=== PATIENT | female | born 1985 | race Caucasian/White ===

== ENCOUNTER 2018-09-04 15:23 | Emergency (ER) | payer OTHER ==
[2018-09-04 15:40] VITALS: BMI 29.2
[2018-09-04] MEDS ORDERED: diazePAM 2 MG TABLET PO ONE (16:39)
[2018-09-04] MEDS ORDERED: diazePAM 2 MG TABLET ONE (16:43)
[2018-09-04 18:00] VITALS: BP 116/80; PULSE 100; TEMP 98.5
--- NOTE | 2018-09-04 18:06 | PDOC ---
History of Present Illness - General Chief Complaint: Pain Stated Complaint: "LOCKED JAW"-JAW PAIN Time Seen by Provider: 09/04/18 16:14 History Source: Patient Exam Limitations: No Limitations Past History - Travel Traveled outside of the country in the last 30 days: No Close contact w/someone who was outside of country & ill: No - Past Medical History Allergies/Adverse Reactions: Allergies Allergy/AdvReac Type Severity Reaction Status Date / Time No Known Allergies Allergy Verified 09/04/18 15:35 Home Medications: Ambulatory Orders Benztropine Mesylate 09/04/18 Fluoxetine HCl [Prozac] 20 mg PO DAILY 09/04/18 Quetiapine Fumarate [Seroquel] 300 mg PO HS 09/04/18 COPD: No Psychiatric Problems: Yes (DEPRESSION) - Suicide/Smoking/Psychosocial Hx Smoking History: Never smoked Hx Alcohol Use: No Drug/Substance Use Hx: No Substance Use Type: None Review of Systems - Review of Systems Able to Perform ROS?: Yes Comments:: 09/04/18 17:46 CONSTITUTIONAL: Absent: fever, chills, diaphoresis, generalized weakness, malaise, loss of appetite HEENT: Absent: rhinorrhea, nasal congestion, throat pain, throat swelling, difficulty swallowing, mouth swelling, ear pain, eye pain, visual Changes CARDIOVASCULAR: Absent: chest pain, loss of consciousness, palpitations, irregular heart rate, peripheral edema RESPIRATORY: Absent: cough, shortness of breath, dyspnea with exertion, orthopnea, wheezing, stridor, hemoptysis GASTROINTESTINAL: Absent: abdominal pain, abdominal distension, nausea, vomiting, diarrhea, constipation, melena, hematochezia GENITOURINARY: Absent: dysuria, frequency, urgency, hesitancy, hematuria, flank pain, genital pain MUSCULOSKELETAL: Absent: myalgia, arthralgia, joint swelling SKIN: Absent: rash, itching, pallor HEMATOLOGIC/IMMUNOLOGIC: Absent: easy bleeding, easy bruising, lymphadenopathy, frequent infections ENDOCRINE: Absent: unexplained weight gain, unexplained weight loss, heat intolerance, cold intolerance NEUROLOGIC: Absent: headache, focal weakness or paresthesias, dizziness, unsteady gait, seizure, mental status changes, bladder or bowel incontinence PSYCHIATRIC: Absent: anxiety, depression, suicidal or homicidal ideation, hallucinations. Is the patient limited Frisian proficient: No *Physical Exam - Vital Signs Last Vital Signs Temp Pulse Resp BP Pulse Ox 97.7 F 118 H 17 133/95 100 09/04/18 15:36 09/04/18 15:36 09/04/18 15:36 09/04/18 15:36 09/04/18 15:36 - Physical Exam Comments: 09/04/18 17:46 physical exam Moderate Sedation - Procedure Monitoring Vital Signs: Procedure Monitoring Vital Signs Temperature 97.7 F 09/04/18 15:36 Pulse Rate 118 H 09/04/18 15:36 Respiratory Rate 17 09/04/18 15:36 Blood Pressure 133/95 09/04/18 15:36 O2 Sat by Pulse Oximetry (%) 100 09/04/18 15:36 ED Treatment Course - RADIOLOGY Radiology Studies Ordered: Category Date Time Status MANDIBLE COMPLETE [RAD] Stat Radiology 09/04/18 16:39 Taken - Medications Given in the ED: ED Medications Discontinued Medications Generic Name Dose Route Start Last Admin Trade Name Phongq PRN Reason Stop Dose Admin Diazepam 2 mg 09/04/18 16:39 09/04/18 16:46 Valium - PO 09/04/18 16:40 2 mg ONCE ONE Administration *DC/Admit/Observation/Transfer Diagnosis at time of Disposition: TMJ (sprain of temporomandibular joint) Qualifiers: Encounter type: initial encounter Qualified Code(s): S03.40XA - Sprain of jaw, unspecified side, initial encounter - Discharge Dispostion Disposition: HOME Condition at time of disposition: Stable Decision to Admit order: No - Referrals - Patient Instructions Printed Discharge Instructions: DI for Temporomandibular Disorder Additional Instructions: You were evaluated for your stiff jaw today. Please take your medications as prescribed. Make sure you take the haloperidol with the cogentin Eat soft foods to avoid opening your mouth too wide Follow up with dentistry to have a bite block made Return to the ED for any new or worsening symptoms [facility] Address: [address] [place] [id number] Hours: Open ? Closes 9PM - Post Discharge Activity Forms/Work/School Notes: Back to Work
== END 2018-09-04 18:26 | disposition home or self-care (01) ==
LOC: JER 15:23
DX: S03.40XA Sprain of jaw, unspecified side, initial encounter (principal); X58.XXXA Exposure to other specified factors, initial encounter; Y93.89 Activity, other specified; Y92.9 Unspecified place or not applicable; F32.9 Major depressive disorder, single episode, unspecified
CPT/HCPCS: 70110-TC-FY; 99281-25

== ENCOUNTER 2018-09-23 10:12 | Emergency (ER) | payer OTHER ==
[2018-09-23 10:20] VITALS: TEMP 98.1; BMI 29.2
--- NOTE | 2018-09-23 10:39 | PDOC ---
History of Present Illness - General Chief Complaint: Psychiatric Stated Complaint: ALLERGIC REACTION Time Seen by Provider: 09/23/18 10:21 History Source: Patient Exam Limitations: No Limitations - History of Present Illness Initial Comments: 09/23/18 13:05 Pt is a 32 y/o F with PMH of depression who presents to the ED with anxiety today. Pt states that her psychiatrist wanted her to trial taking the Haldol again. Pt lindaifly stopped the medication after her last ED visit. Pt states that since taking the medication she has felt on edge and cannot stop pacing. Denies SI, HI, A/V hallucinations, fever, chills, n/v/d. Past History - Travel Traveled outside of the country in the last 30 days: No Close contact w/someone who was outside of country & ill: No - Past Medical History Allergies/Adverse Reactions: Allergies Allergy/AdvReac Type Severity Reaction Status Date / Time No Known Allergies Allergy Verified 09/04/18 15:35 Home Medications: Ambulatory Orders Diazepam [Valium] 2 mg PO TID #7 tablet MDD 3 09/23/18 NK [No Known Home Medication] 09/23/18 COPD: No Psychiatric Problems: Yes (DEPRESSION) - Surgical History Cardiac Surgery: No GI Surgery: No - Suicide/Smoking/Psychosocial Hx Smoking History: Never smoked Have you smoked in the past 12 months: No Information on smoking cessation initiated: No Hx Alcohol Use: No Drug/Substance Use Hx: No Substance Use Type: None Review of Systems - Review of Systems Able to Perform ROS?: Yes Comments:: 09/23/18 10:39 CONSTITUTIONAL: Absent: fever, chills, diaphoresis, generalized weakness, malaise, loss of appetite HEENT: Absent: rhinorrhea, nasal congestion, throat pain, throat swelling, difficulty swallowing, mouth swelling, ear pain, eye pain, visual Changes CARDIOVASCULAR: Absent: chest pain, loss of consciousness, palpitations, irregular heart rate, peripheral edema RESPIRATORY: Absent: cough, shortness of breath, dyspnea with exertion, orthopnea, wheezing, stridor, hemoptysis GASTROINTESTINAL: Absent: abdominal pain, abdominal distension, nausea, vomiting, diarrhea, constipation, melena, hematochezia GENITOURINARY: Absent: dysuria, frequency, urgency, hesitancy, hematuria, flank pain, genital pain MUSCULOSKELETAL: Absent: myalgia, arthralgia, joint swelling SKIN: Absent: rash, itching, pallor HEMATOLOGIC/IMMUNOLOGIC: Absent: easy bleeding, easy bruising, lymphadenopathy, frequent infections ENDOCRINE: Absent: unexplained weight gain, unexplained weight loss, heat intolerance, cold intolerance NEUROLOGIC: Absent: headache, focal weakness or paresthesias, dizziness, unsteady gait, seizure, mental status changes, bladder or bowel incontinence PSYCHIATRIC: Present: anxiety Absent: depression, suicidal or homicidal ideation, hallucinations. Is the patient limited Barbadian proficient: No *Physical Exam - Vital Signs Last Vital Signs Temp Pulse Resp BP Pulse Ox 98.1 F 116 H 18 124/92 98 09/23/18 10:16 09/23/18 10:16 09/23/18 10:16 09/23/18 10:16 09/23/18 10:16 - Physical Exam Comments: 09/23/18 10:39 GENERAL: Well developed, well nourished. Awake and alert. No acute distress. NECK: Supple. Full ROM. No JVD. Carotid pulses 2+ and symmetric, without bruits. No thyromegaly. No lymphadenopathy. ABDOMINAL: Soft. Non-tender. Non-distended. No rebound or guarding. No organomegaly. Normoactive bowel sounds. MUSCULOSKELETAL Normal range of motion at all joints. No bony deformities or tenderness. No CVA tenderness. EXTREMITIES: No cyanosis. No clubbing. No edema. No calf tenderness. SKIN: Warm and dry. Normal capillary refill. No rashes. No jaundice. NEUROLOGICAL: Alert, awake, appropriate. Cranial nerves 2-12 intact. No deficits to light touch and temperature in face, upper extremities and lower extremities. No motor deficits in the in face, upper extremities and lower extremities. Normoreflexic in the upper and lower extremities. Normal speech. Toes are down- going bilaterally. Gait is normal without ataxia. PSYCHIATRIC: Pressured speech, fair eye contact. Pt seems anxious, pacing in the exam room. Cooperative. Moderate Sedation - Procedure Monitoring Vital Signs: Procedure Monitoring Vital Signs Temperature 98.1 F 09/23/18 10:16 Pulse Rate 116 H 09/23/18 10:16 Respiratory Rate 18 09/23/18 10:16 Blood Pressure 124/92 09/23/18 10:16 O2 Sat by Pulse Oximetry (%) 98 09/23/18 10:16 Medical Decision Making - Medical Decision Making 09/23/18 11:58 Pt received 4mg of valium and feels better; that her anxiety has decreased. Would like to be discharged at this time. Pt denies SI/HI/AVH. Pt feels safe to go home Has psych follow up on Sunday with her psychiatrist Advised to stop taking the haldol as it is increasing her anxiety Pt requesting having her urine checked for UTI. Will run the test and call with results as pt does not want to stay at this time to wait. DC home I discussed the physical exam findings, ancillary test results and final diagnoses with the patient. I answered all of the patient's questions. The patient was satisfied with the care received and felt comfortable with the discharge plan and treatment plan. The Patient agrees to follow up with the primary care physician/specialist within 24-72 hours. Return precautions were given. *DC/Admit/Observation/Transfer Diagnosis at time of Disposition: Anxiety - Discharge Dispostion Disposition: HOME Condition at time of disposition: Stable Decision to Admit order: No - Prescriptions Prescriptions: Diazepam [Valium] 2 mg PO TID #7 tablet MDD 3 - Referrals Referrals: Arpan Castañeda MD [Staff Physician] - - Patient Instructions Printed Discharge Instructions: DI for Anxiety -- Adult Additional Instructions: You were evaluated for your anxiety Please stop taking the haldol You may take Valium as needed every 8 hours for anxiety. Do not drink or drive after taking the medication as it can make you sleepy Follow up with your psychiatrist as planned Return to the ED for worsening anxiety or if you have any changes in your symptoms - Post Discharge Activity
[2018-09-23] MEDS ORDERED: diazePAM 2 MG TABLET PO ONE ×2 (11:09→11:54)
[2018-09-23] MEDS ORDERED: diazePAM 2 MG TABLET ONE ×2 (11:18→11:55)
[2018-09-23 12:42] VITALS: BP 122/75; PULSE 81
[2018-09-23 13:19] LABS: URINE APPEARANCE CLEAR; URINE BILIRUBIN NEGATIVE (<2.0 mg/dL); URINE COLOR LTYELLOW; URINE GLUCOSE (UA) NEGATIVE (NEGATIVE); URINE KETONE NEGATIVE (NEGATIVE); URINE LEUK ESTERASE 2+ (NEGATIVE); URINE NITRITE NEGATIVE (NEGATIVE); URINE PROTEIN NEGATIVE (NEGATIVE); URINE UROBILINOGEN NEGATIVE mg/dL (0.2-1.0)
[2018-09-23 13:49] LABS: EPI CELLS RARE /HPF (FEW)
== END 2018-09-23 12:42 | disposition home or self-care (01) ==
LOC: JER 10:12
DX: F41.8 Other specified anxiety disorders (principal); F32.9 Major depressive disorder, single episode, unspecified; N39.0 Urinary tract infection, site not specified
CPT/HCPCS: 81003; 81015; 87086; 87186; 99283-25

== ENCOUNTER 2018-12-27 22:00 | Inpatient (IN) | payer OTHER ==
[2018-12-27] MEDS ORDERED: SODIUM CHLORIDE 1,000 ML IV STA (22:04)
--- NOTE | 2018-12-27 22:05 | PDOC ---
History of Present Illness - General Stated Complaint: OVERDOSE Time Seen by Provider: 12/27/18 22:02 - History of Present Illness Initial Comments: 12/27/18 22:08 33f with pmh of depression and anxiety brought by mother in her care after she was found unconscious next to two empty bottles of Quetiapine 200mg and Fluoxetine 20mg prescribed by her Psychiatrist Dr. Darrian Zarate. Unknown time of ingestion but she told her brother's partner to "say goodbye to the kids because" she "couldn't do this no more" around 7:30pm Mother drove to the ambulance bay Mother's phone number: [phone] Past History - Past Medical History Allergies/Adverse Reactions: Allergies Allergy/AdvReac Type Severity Reaction Status Date / Time No Known Allergies Allergy Verified 12/27/18 22:11 Home Medications: Ambulatory Orders Diazepam [Valium] 2 mg PO TID #7 tablet MDD 3 09/23/18 NK [No Known Home Medication] 09/23/18 COPD: No Psychiatric Problems: Yes (DEPRESSION) - Surgical History Cardiac Surgery: No GI Surgery: No - Suicide/Smoking/Psychosocial Hx Smoking History: Never smoked Have you smoked in the past 12 months: No Hx Alcohol Use: No Drug/Substance Use Hx: No Substance Use Type: None Review of Systems - Review of Systems Able to Perform ROS?: No (unconscious) *Physical Exam - Physical Exam General Appearance: Yes: Nourished, Appropriately Dressed, Intoxicated HEENT: positive: Other (pinpoint pupils, white, dry saliva) Respiratory/Chest: positive: Lungs Clear, Normal Breath Sounds. negative: Chest Tender, Respiratory Distress Cardiovascular: positive: Regular Rhythm, Regular Rate, S1, S2 Gastrointestinal/Abdominal: positive: Normal Bowel Sounds, Flat, Soft. negative : Tender Musculoskeletal: positive: Normal Inspection, CVA Tenderness Extremity: positive: Normal Capillary Refill, Normal Inspection, Normal Range of Motion Neurologic: positive: Other (obtunded patient, responds to pain. ) ED Treatment Course - LABORATORY CBC & Chemistry Diagram: 12/27/18 22:10 12/27/18 22:10 Medical Decision Making - Medical Decision Making 12/27/18 22:53 EKG: Sinus tachycardia. no wide complex or prolongued QT Full tox workup., cxr,. Preg negative. Will call POison control pending labs. Hypokalemia, gave her rider bag of potassium 10meQ 12/27/18 23:17 Spoke to Poison controlwho recommended observation for 12h, ekg q6 and supplental potassium. 1:1 observation upon waking up. 12/27/18 23:43 Patient signed out to Dr. Ardon *DC/Admit/Observation/Transfer Diagnosis at time of Disposition: Intentional SSRI (selective serotonin reuptake inhibitor) overdose, Overdose of antipsychotic - Referrals - Patient Instructions - Post Discharge Activity
[2018-12-27 22:19] LABS: BASO % 0.3 % (0-2.0); EOS % 0.4 % (0-4.5); HEMATOCRIT 34.4 % (32.4-45.2); HEMOGLOBIN 11.5 GM/dL (10.7-15.3); LYMPH % 19.7 % (8-40); MCH 28.6 pg (25.7-33.7); MCHC 33.5 g/dl (32.0-36.0); MEAN CELL VOLUME 85.4 fl (80-96); MEAN PLT VOLUME 8.3 fl (7.5-11.1); MONO % 5.7 % (3.8-10.2); NEUT % 73.9 % (42.8-82.8); PLATELET COUNT 302 K/MM3 (134-434); RBC 4.03 M/mm3 (3.60-5.2); RDW 13.5 % (11.6-15.6); WHITE BLOOD COUNT 10.6 K/mm3 (4.0-10.0)
[2018-12-27 22:41] LABS: URINE APPEARANCE CLEAR; URINE BILIRUBIN NEGATIVE (NEGATIVE); URINE COLOR YELLOW; URINE GLUCOSE (UA) NEGATIVE (NEGATIVE); URINE KETONE 1+ (NEGATIVE); URINE LEUK ESTERASE NEGATIVE (NEGATIVE); URINE NITRITE NEGATIVE (NEGATIVE); URINE PROTEIN NEGATIVE (NEGATIVE); URINE UROBILINOGEN 0.2 mg/dL (0.2-1.0)
[2018-12-27 22:46] LABS: ALBUMIN 3.8 g/dl (3.4-5.0); ALK PHOS 56 U/L (45-117); ANION GAP 13 MMOL/L (8-16); BILIRUBIN,TOTAL 0.3 mg/dL (0.2-1); BLOOD UREA NITROGEN 13 mg/dL (7-18); CALCIUM 8.9 mg/dL (8.5-10.1); CHLORIDE 104 mmol/L (98-107); CO2 20 mmol/L (21-32); CREATININE 0.9 mg/dL (0.55-1.3); GLUCOSE,RANDOM 169 mg/dL (74-106); POTASSIUM 3.1 mmol/L (3.5-5.1); SGOT/AST 30 U/L (15-37); SGPT/ALT 25 U/L (13-61); SODIUM 136 mmol/L (136-145); TOT PROT 7.1 g/dl (6.4-8.2)
[2018-12-27 22:59] LABS: COCAINE, UR NEGATIVE ng/ml (CUTOFF=300); METHADONE, UR NEGATIVE ng/ml (CUTOFF=300); OPIATES, URI NEGATIVE ng/ml (CUTOFF=300); PHENCYCLIDINE,URINE NEGATIVE ng/ml (CUTOFF=25); URINE AMPHETAMINES NEGATIVE ng/ml (CUTOFF=500); URINE BARBITURATES NEGATIVE ng/ml (CUTOFF=200); URINE BENZODIAZEPINES NEGATIVE ng/ml (CUTOFF=200)
[2018-12-27] MEDS ORDERED: KCL 10 MEQ IVPB 10 MEQ/100 ML INFUS.BAG IVPB SCH (23:15)
[2018-12-27] MEDS ORDERED: KCL 10 MEQ IVPB 10 MEQ/100 ML INFUS.BAG IVPB ONE (23:25)
--- NOTE | 2018-12-28 00:12 | PDOC ---
*Physical Exam - Vital Signs Last Vital Signs Temp Pulse Resp BP Pulse Ox 98.6 F 155 H 16 139/71 99 12/27/18 22:09 12/27/18 22:09 12/27/18 22:09 12/27/18 22:09 12/27/18 22:09 ED Treatment Course - LABORATORY CBC & Chemistry Diagram: 12/27/18 22:10 12/27/18 22:10 - ADDITIONAL ORDERS Additional order review: Laboratory Results 12/27/18 12/27/18 12/27/18 22:20 22:20 22:10 Sodium 136 Potassium 3.1 L Chloride 104 Carbon Dioxide 20 L Anion Gap 13 BUN 13 Creatinine 0.9 Creat Clearance w eGFR 72.56 Random Glucose 169 H Calcium 8.9 Total Bilirubin 0.3 AST 30 ALT 25 Alkaline Phosphatase 56 Total Protein 7.1 Albumin 3.8 Serum , Qual Urine Color Yellow Urine Appearance Clear Urine pH 6.0 Ur Specific [place] 1.024 Urine Protein Negative Urine Glucose (UA) Negative Urine Ketones 1+ H Urine Blood Negative Urine Nitrite Negative Urine Bilirubin Negative Urine Urobilinogen 0.2 Ur Leukocyte Esterase Negative Salicylates 4.1 Opiates Screen Negative Methadone Screen Negative Acetaminophen 6.6 L Barbiturate Screen Negative Phencyclidine Screen Negative Ur Amphetamines Screen Negative MDMA (Ecstasy) Screen Negative Benzodiazepines Screen Negative Cocaine Screen Negative U Marijuana (THC) Screen Negative Alcohol, Quantitative < 3.0 12/27/18 22:10 Sodium Potassium Chloride Carbon Dioxide Anion Gap BUN Creatinine Creat Clearance w eGFR Random Glucose Calcium Total Bilirubin AST ALT Alkaline Phosphatase Total Protein Albumin Serum , Qual Negative Urine Color Urine Appearance Urine pH Ur Specific [place] Urine Protein Urine Glucose (UA) Urine Ketones Urine Blood Urine Nitrite Urine Bilirubin Urine Urobilinogen Ur Leukocyte Esterase Salicylates Opiates Screen Methadone Screen Acetaminophen Barbiturate Screen Phencyclidine Screen Ur Amphetamines Screen MDMA (Ecstasy) Screen Benzodiazepines Screen Cocaine Screen U Marijuana (THC) Screen Alcohol, Quantitative 12/27/18 22:10 RBC 4.03 MCV 85.4 MCHC 33.5 RDW 13.5 MPV 8.3 Neutrophils % 73.9 Lymphocytes % 19.7 Monocytes % 5.7 Eosinophils % 0.4 Basophils % 0.3 - RADIOLOGY Radiology Studies Ordered: Category Date Time Status CXRPORT [CHEST X-RAY PORTABLE*] [RAD] Stat Radiology 12/27/18 23:09 Taken - Medications Given in the ED: ED Medications Discontinued Medications Generic Name Dose Route Start Last Admin Trade Name Freq PRN Reason Stop Dose Admin Sodium Chloride 1,000 mls @ 1,000 mls/hr 12/27/18 22:04 12/27/18 22:11 Normal Saline - IV 12/27/18 23:03 1,000 mls/hr ASDIR STA Administration *DC/Admit/Observation/Transfer Diagnosis at time of Disposition: Intentional SSRI (selective serotonin reuptake inhibitor) overdose, Overdose of antipsychotic - Discharge Dispostion Decision to Admit order: Yes - Referrals - Patient Instructions - Post Discharge Activity
--- NOTE | 2018-12-28 00:14 | PDOC ---
Attending Attestation - HPI HPI: 12/28/18 00:47 The patient is a 33 year old female with a significant past medical history of depression and anxiety, brought by mother for evaluation after finding the patient unconscious next to two empty bottles of Quetiapine 200mg and Fluoxetine 20mg prescribed by her Psychiatrist Dr. Darrian Zarate. The patient reportedly told her brother's partner to "say goodbye to the kids because" she "couldn't do this no more" around 7:30pm Allergies: NKDA - Physicial Exam PE: 12/28/18 01:19 Physical Exam: Vitals: Triage vital signs reviewed General Appearance: In mild distress Head: Atraumatic Eyes: (+) pupils small but reactive Neck: Supple; No nuchal rigidity Chest Wall: Nontender Cardiac: (+) tachycardic rate, regular rhythm, no murmurs, no rubs, no gallops Lungs: Clear to auscultation bilateral, good air movement bilaterally Abdomen: Soft, nondistended, normal bowel sounds, nontender to palpation Extremities: Full range of motion to all extremities, no cyanosis, clubbing, or edema Skin: Warm and dry, no rashes or lesions, no rash, no petechiae Neuro: Strength intact to all extremities, Sensation intact to all extremities, <Layla Paiz - Last Filed: 12/28/18 01:19> - Resident Resident Name: Tien Bowie - ED Attending Attestation I have performed the following: I have examined & evaluated the patient, The case was reviewed & discussed with the resident, I agree w/resident's findings & plan, Exceptions are as noted - Medical Decision Making 12/28/18 01:56 Quetipine and Fluoxetine overdose. EKG demonstrates sinus tachycardia narrow complex QRS As discussed with tox center recommend 12 hour every 6 hours EKG monitoring correction of potassium We will admit to medicine for telemetry monitoring and further correction of what joint abnormalities when clinically sober patient will require psychiatric evaluation for overdose and possible suicide attempt <Nader Fall - Last Filed: 12/28/18 01:59> Heart Score/ECG Review - ECG Impressions Comment:: 12/28/18 01:[address] elevations or T-wave inversions. Now, looks QRS. <Nader Fall - Last Filed: 12/28/18 01:59> Attestations - Attestations 12/28/18 00:49 Documentation prepared by Layla Paiz, acting as medical supply technician for Nader Fall MD <Layla Paiz - Last Filed: 12/28/18 01:19>
[2018-12-28] MEDS ORDERED: SODIUM CHLORIDE 1,000 ML IV SCH (00:45)
--- NOTE | 2018-12-28 00:48 | HP ---
CHIEF COMPLAINT: Unresponsiveness PCP: None HISTORY OF PRESENT ILLNESS: 33 yo F w/ h/o depression and anxiety who presents with unresponsiveness after potential suicide attempt. Pt is currently obtunded and history obtained through EMR/ED staff and mother. Around 7:30pm pt was found on the ground at home by her mother surrounded by 2 empty pill bottles (Quetiapine 200mg and Fluoxetine 20mg). Pt's mother reports the pill bottles were around 1/4 to 1/2 full a few days ago, however she is uncertain on any specific pill counts. Pt's mother did not notice any tonic-clonic movements, no urinary incontinence, no excessive diaphoresis, and the pt's mother noted she was still breathing. Her exact time of ingestion is unknown and it was noted earlier that the pt told her brother's significant other to "say goodbye to the kids" and "she could not do this anymore." Pt has been seen by Dr. Darrian Zarate for her depression and has had multiple changes in her depression/anxiety medications for poor control. Pt prior ED visits here were possible reaction to Haldol as well. Pt has not been in psychiatric hospital before. In ED poison control was notified who recommended EKG q6h and at least 12 hours of observation with cardiac monitoring with supportive care as needed. PAST MEDICAL HISTORY: Anxiety Depression PAST SURGICAL HISTORY: Unable to obtain Social History: Unable to obtain Family History: Unable to obtain Allergies No Known Allergies Allergy (Verified 12/27/18 22:11) HOME MEDICATIONS: Home Medications Medication Instructions Recorded Diazepam [Valium] 2 mg PO TID #7 tablet MDD 3 09/23/18 NK [No Known Home Medication] 09/23/18 REVIEW OF SYSTEMS Unable to obtain PHYSICAL EXAMINATION Vital Signs - 24 hr 12/27/18 22:09 Temperature 98.6 F Pulse Rate 155 H Respiratory 16 Rate Blood Pressure 139/71 O2 Sat by Pulse 99 Oximetry (%) GENERAL: NAD, unresponsive even to painful stimuli, warm, nondiaphoretic HEENT: NC/AT, 4mm pupils with narvaez reactivity, no sclera icterus or injections , MMM. NECK: No JVD, trachea midline LUNGS: CTA bilaterally with equal chest rise and fall. No wheezes, and no crackles. No accessory muscle use. HEART: Tachycardic (115bpm) with regular rhythm, normal S1 and S2 without murmur ABDOMEN: Soft, nontender, not distended, normoactive bowel sounds, no guarding MUSCULOSKELETAL: No bony deformities or tenderness. EXTREMITIES: 2+ bounding pulses, very warm, well-perfused. No peripheral edema. NEUROLOGICAL: limited. Babinski downgoing. Patellar reflexes 2/4. No clonus could be elicited. Muscle tone flaccid without any rigidity PSYCHIATRIC: Cooperative. Good eye contact. Appropriate mood and affect. SKIN: Warm, dry, no rashes or lesions noted, normal capillary refill. Laboratory Results 12/27/18 12/27/18 12/27/18 22:10 22:10 22:10 WBC 10.6 H RBC 4.03 Hgb 11.5 Hct 34.4 MCV 85.4 MCH 28.6 MCHC 33.5 RDW 13.5 Plt Count 302 MPV 8.3 Absolute Neuts (auto) 7.8 Neutrophils % 73.9 Lymphocytes % 19.7 Monocytes % 5.7 Eosinophils % 0.4 Basophils % 0.3 Nucleated RBC % 0 Sodium 136 Potassium 3.1 L Chloride 104 Carbon Dioxide 20 L Anion Gap 13 BUN 13 Creatinine 0.9 Creat Clearance w eGFR 72.56 Random Glucose 169 H Calcium 8.9 Total Bilirubin 0.3 AST 30 ALT 25 Alkaline Phosphatase 56 Total Protein 7.1 Albumin 3.8 Serum , Qual Negative Urine Color Urine Appearance Urine pH Ur Specific [place] Urine Protein Urine Glucose (UA) Urine Ketones Urine Blood Urine Nitrite Urine Bilirubin Urine Urobilinogen Ur Leukocyte Esterase Salicylates 4.1 Opiates Screen Methadone Screen Acetaminophen 6.6 L Barbiturate Screen Phencyclidine Screen Ur Amphetamines Screen MDMA (Ecstasy) Screen Benzodiazepines Screen Cocaine Screen U Marijuana (THC) Screen Alcohol, Quantitative < 3.0 12/27/18 12/27/18 22:20 22:20 WBC RBC Hgb Hct MCV MCH MCHC RDW Plt Count MPV Absolute Neuts (auto) Neutrophils % Lymphocytes % Monocytes % Eosinophils % Basophils % Nucleated RBC % Sodium Potassium Chloride Carbon Dioxide Anion Gap BUN Creatinine Creat Clearance w eGFR Random Glucose Calcium Total Bilirubin AST ALT Alkaline Phosphatase Total Protein Albumin Serum , Qual Urine Color Yellow Urine Appearance Clear Urine pH 6.0 Ur Specific [place] 1.024 Urine Protein Negative Urine Glucose (UA) Negative Urine Ketones 1+ H Urine Blood Negative Urine Nitrite Negative Urine Bilirubin Negative Urine Urobilinogen 0.2 Ur Leukocyte Esterase Negative Salicylates Opiates Screen Negative Methadone Screen Negative Acetaminophen Barbiturate Screen Negative Phencyclidine Screen Negative Ur Amphetamines Screen Negative MDMA (Ecstasy) Screen Negative Benzodiazepines Screen Negative Cocaine Screen Negative U Marijuana (THC) Screen Negative Alcohol, Quantitative EKG 21:40h - Sinus tachycardia 149 with normal [place] and R-wave progression. No KATLYN/ No STD, no TWI, QTc 522ms ASSESSMENT/PLAN: Suicide attempt Overdose of Seroquel and Fluoxetine Prolonged Qtc Hypokalemia Will monitor on telemetry unit with EKG q6h Monitor vitals with attention to temperature rise NS@125cc/hr to help with renal clearance of medications Will add-on Mg given Qtc elongation; if widening will give Mg Sulfate IV Continue 1:1 Psych consult ordered Hold all antipsychotics and SSRI's Continue restraints, however caution with potential to serotonin syndrome clonus events FEN: Fluids: NS@125cc/hr Electrolyte abnormalities: Hypokalemia repletion with KCl riders Nutrition: NPO until awake PPX: DVT - early ambulation once awake Dispo: Telemetry; psych Case discussed with Dr. Ambar Brown, DO - IM PGY-2 Visit type - Emergency Visit Emergency Visit: Yes ED Registration Date: 12/28/18 Care time: The patient presented to the Emergency Department on the above date and was hospitalized for further evaluation of their emergent condition. - New Patient This patient is new to me today: Yes Date on this admission: 12/28/18 - Critical Care Critical Care patient: No
--- NOTE | 2018-12-28 01:29 | PN ---
Teaching Attending Note Name of Resident: Harrison Brown ATTENDING PHYSICIAN STATEMENT I saw and evaluated the patient. I reviewed the resident's note and discussed the case with the resident. I agree with the resident's findings and plan as documented. SUBJECTIVE: Patient is a 33 year old woman with a significant past medical history of depression and anxiety, brought by mother for evaluation after finding the patient unconscious next to two empty bottles of Quetiapine 200mg and Fluoxetine 20mg prescribed by her Psychiatrist Dr. Darrian Zarate. The patient reportedly told her brother's partner to "say goodbye to the kids because" she "couldn't do this no more" around 7:30 pm. Initial EKG in the ER showed sinus tachycardia with prolonged QTc. Poison control recommended q 6 hourly EKGs. OBJECTIVE: Obtunded and not in respiratory distress Vital Signs Period Temp Pulse Resp BP Sys/Aleman Pulse Ox Last 24 Hr 98.6 F 155 16 139/71 99 HEENT: No Jaundice, eye redness or discharge, PERRLA. Normocephalic, atraumatic. External ears are normal. No nasal discharge. Neck: Supple, nontender. No palpable adenopathy or thyromegaly. No JVD Chest: Good effort. Clear to auscultation and percussion. Heart: Regular. No S3, rub or murmur Abdomen: Not distended, soft, nontender and no HSM. No rebound or guarding. Normal bowel sounds. Ext: Peripheral pulses intact. No leg edema. Skin: Warm and dry. No petechiae, rash or ecchymosis. Neuro: Obtunded. Psych: Unable to assess. Current Medications Generic Name Dose Route Start Last Admin Trade Name Freq PRN Reason Stop Dose Admin Sodium Chloride 1,000 mls @ 125 mls/hr 12/28/18 00:45 12/28/18 00:54 Normal Saline - IV 12/28/18 08:44 125 mls/hr ASDIR LYNDON Administration Home Medications Medication Instructions Recorded Diazepam [Valium] 2 mg PO TID #7 tablet MDD 3 09/23/18 NK [No Known Home Medication] 09/23/18 Abnormal Lab Results 12/27/18 12/27/18 12/27/18 22:10 22:10 22:20 WBC 10.6 H Potassium 3.1 L Carbon Dioxide 20 L Random Glucose 169 H Urine Ketones 1+ H Acetaminophen 6.6 L ASSESSMENT AND PLAN: 1. Antipsychotic and SSRI overdose - Will continue IV NS to enhance renal excretion of the ingested drugs. Got 1 liter of IV NS bolus in the ER. Continue q 6 hourly EKGs, one-to-one monitoring, neurochecks, seizure, aspiration and fall precautions. Watch out for Serotonin syndrome and QTc syndrome and avoid any drugs that will precipitate either. Hypokalemia is uneplained - will check serum Mg+ and give IV KCL. No acute abnormality on CXR. Will get head CT when stable. Psychiatry consult. 2. Obesity Once clinically appropriate, will senior vice president & general counsel patient on the risks associated with obesity. Will provide patient all the necessary assistance, counseling and positive reinforcement to facilitate weight loss. Consult tool room gear machine operator. 3. DVT prophylaxis - Lovenox 40 mg SQ q 24 hours. 4. Advance directives - Full code
[2018-12-28 06:36] LABS: ANION GAP 12 MMOL/L (8-16); BLOOD UREA NITROGEN 9 mg/dL (7-18); CALCIUM 7.8 mg/dL (8.5-10.1); CHLORIDE 108 mmol/L (98-107); CO2 22 mmol/L (21-32); CREATININE 0.7 mg/dL (0.55-1.3); GLUCOSE,RANDOM 95 mg/dL (74-106); MAGNESIUM 1.8 mg/dL (1.8-2.4); POTASSIUM 3.3 mmol/L (3.5-5.1); SODIUM 141 mmol/L (136-145)
[2018-12-28 14:42] LABS: MAGNESIUM 2.1 mg/dL (1.8-2.4)
--- NOTE | 2018-12-28 15:38 | CON.PSY ---
Psychiatry Consult Chief Complaint: 33 yuear 9old female admitted with Drug Overdose of her Psych Meds. she had been under Psych care and has been on Seroquel and Prozac. shec apparantly told her sister in [place] to say good bye to her kids,. patient is totally obtunded at this time. Symptoms: reports: Depressed Mood, Suicidality, Self destructive thoughts - Previous Psychiatric Treatment Outpatient: Less than 6 mos ago Inpatient: Within the last 12 months - Previous Substance Abuse Treatment Outpatient: None Inpatient: None - Reason for Previous Treatment Reason for Previous Treatment: Major Depression - Allergies Allergies: Allergies Allergy/AdvReac Type Severity Reaction Status Date / Time No Known Allergies Allergy Verified 12/27/18 22:11 - Current Living Status Usual Living Arrangement: With Spouse - Current Mental Status Evaluation Appearance: Disheveled Attitude: Other - Affect Affect: Flat - Mood Mood: Depressed - Speech/Language Expressive: Delayed, Incoherent - Psychomotor Activity Psychomotor Activity: Slowed - Thought Process Thought Process: [place] - Thought Content Hallucinations: Absent Delusions: Absent - Self Perception Self Perception: Depersonalization - Cognition Attention: Diminished Memory, Immediate Recall: Impaired - Concentration Serial Sevens Intact: No Simple Calculations Intact: No - Abstraction Judgement: Severely Impaired - Insight Insight: Impaired - Impulse Control Impulse Control: Severly Impaired - Suicidal Ideation Suicidal Ideation: Yes (drug overdose) - Homicidal Ideation Homicidal Ideation: No Assessment/Plan 1) admit to Medicine. 2) Continue with 1:1. 3) will follow .
[2018-12-29] MEDS ORDERED: LORazepam 2 MG/ML SDV VIAL ONE (00:22)
[2018-12-29] MEDS: LORazepam 2 MG/ML SDV VIAL IVPUSH PRN ×2 (00:28→20:39)
--- NOTE | 2018-12-29 11:45 | PN ---
Progress Note, Physician History of Present Illness: patient is sleeping in her bed no issues - Current Medication List Current Medications: Active Medications Lorazepam (Ativan Injection -) 2 mg IVPUSH Q8H PRN PRN Reason: AGITATION Last Admin: 12/29/18 00:28 Dose: 2 mg - Objective Vital Signs: Vital Signs Temperature 97.9 F 12/28/18 16:00 Pulse Rate 110 H 12/28/18 16:00 Respiratory Rate 18 12/28/18 16:00 Blood Pressure 105/57 L 12/28/18 16:00 O2 Sat by Pulse Oximetry (%) 99 12/28/18 17:00 Constitutional: Yes: Well Nourished, No Distress, Calm Eyes: Yes: WNL, Conjunctiva Clear, EOM Intact HENT: Yes: WNL, Atraumatic, Normocephalic Neck: Yes: WNL, Supple, Trachea Midline Cardiovascular: Yes: WNL, Regular Rate and Rhythm Respiratory: Yes: WNL, Regular, CTA Bilaterally Gastrointestinal: Yes: WNL, Normal Bowel Sounds, Soft Musculoskeletal: Yes: WNL Extremities: Yes: WNL Edema: No Peripheral Pulses WNL: Yes Integumentary: Yes: WNL Neurological: Yes: WNL, Alert, Oriented ...Motor Strength: WNL Psychiatric: Yes: WNL, Alert, Oriented, Suicidal Ideation Labs: CBC, BMP 12/27/18 22:10 12/28/18 05:30 Assessment/Plan Suicide attempt - c/w 1:1 monitor Prolonged Qtc - trend ECG and correct electrolyte abnormalities Hypokalemia - supplement potassium Will monitor on telemetry unit with EKG q6h Monitor vitals with attention to temperature rise NS@125cc/hr to help with renal clearance of medications Will add-on Mg given Qtc elongation; if widening will give Mg Sulfate IV Psych consult ordered Hold all antipsychotics and SSRI's Continue restraints, however caution with potential to serotonin syndrome clonus events FEN: Fluids: NS@125cc/hr Electrolyte abnormalities: Hypokalemia repletion with KCl riders Nutrition: NPO until awake PPX: DVT - early ambulation once awake
[2018-12-29] MEDS ORDERED: POTASSIUM CHLORIDE TABS 20 MEQ TABLET.ER (FP) PO ONE ×2 (12:00→12:37)
[2018-12-29 14:31] VITALS: BMI 30.5
[2018-12-29] MEDS ORDERED: HALOPERIDOL LACTATE 5 MG/ML IM ONE (20:45)
[2018-12-29] MEDS ORDERED: LORazepam 2 MG/ML SDV VIAL IM ONE (20:45)
[2018-12-29] MEDS ORDERED: LORazepam 2 MG/ML SDV VIAL IVPUSH ONE (21:01)
--- NOTE | 2018-12-29 21:23 | PN ---
Progress Note (short form) - Note Progress Note: Paged for Pt. being agitated demanding to leave hospital.Pt. yelling screaming, and ripped out IV with minimal blood loss. Ativan 2mg given IVP, Pt still adamant pacing around room so decision was made to give another 2mg IVP. Pt.'s family was called and appeared at bedside. Family in agreement with medical decision. EKG was obtained immediately after adequate sedation as previous EKG showed QTc to 522. New EKG showed QTc of 469. Pt. resting comfortable in bed.
[2018-12-30 06:31] LABS: BASO % 0.2 % (0-2.0); EOS % 1.7 % (0-4.5); HEMATOCRIT 31.5 % (32.4-45.2); HEMOGLOBIN 10.5 GM/dL (10.7-15.3); MCH 28.4 pg (25.7-33.7); MCHC 33.2 g/dl (32.0-36.0); MEAN CELL VOLUME 85.6 fl (80-96); MEAN PLT VOLUME 8.1 fl (7.5-11.1); MONO % 5.8 % (3.8-10.2); NEUT % 73.3 % (42.8-82.8); PLATELET COUNT 286 K/MM3 (134-434); RBC 3.68 M/mm3 (3.60-5.2); RDW 13.7 % (11.6-15.6); WHITE BLOOD COUNT 11.2 K/mm3 (4.0-10.0)
[2018-12-30 07:11] LABS: ALBUMIN 3.2 g/dl (3.4-5.0); ALK PHOS 42 U/L (45-117); ANION GAP 7 MMOL/L (8-16); BILIRUBIN,TOTAL 0.4 mg/dL (0.2-1); BLOOD UREA NITROGEN 10 mg/dL (7-18); CALCIUM 8.4 mg/dL (8.5-10.1); CHLORIDE 107 mmol/L (98-107); CO2 23 mmol/L (21-32); CREATININE 0.6 mg/dL (0.55-1.3); GLUCOSE,RANDOM 80 mg/dL (74-106); MAGNESIUM 2.3 mg/dL (1.8-2.4); POTASSIUM 3.6 mmol/L (3.5-5.1); SGOT/AST 45 U/L (15-37); SGPT/ALT 27 U/L (13-61); SODIUM 138 mmol/L (136-145); TOT PROT 6.5 g/dl (6.4-8.2)
--- NOTE | 2018-12-30 08:01 | PN ---
Physical Exam: SUBJECTIVE: Patient seen and examined 24 HR EVENTS: -Patient agitated overnight. Treated with ativan 4mg and family support. - repeat EKG overnight QTc 469 -as discussed with coering psych, pt stable for transfer to inpatient psych facility. -pt anxious with the thought of transfer and relates starting a new job and would like to be discharged to "complete a project at work." - as per nursing staff, pt threatens to sign out AMA, and pulled out IV OBJECTIVE: Vital Signs Period Temp Pulse Resp BP Sys/Aleman Pulse Ox Last 24 Hr 97.6 F-98.5 F 106-130 18-20 108-133/67-76 96-98 GENERAL: The patient is awake, alert, and fully oriented, in no acute distress. HEAD: Normal with no signs of trauma. EYES: PERRL, extraocular movements intact, sclera anicteric, conjunctiva clear. No ptosis. ENT: Ears normal, nares patent, oropharynx clear without exudates, moist mucous membranes. NECK: Trachea midline, full range of motion, supple. LUNGS: Breath sounds equal, clear to auscultation bilaterally, no wheezes, no crackles, no accessory muscle use. HEART: Regular rate and rhythm, S1, S2 without murmur, rub or gallop. ABDOMEN: Soft, nontender, nondistended, normoactive bowel sounds, no guarding, no rebound, no hepatosplenomegaly, no masses. EXTREMITIES: 2+ pulses, warm, well-perfused, no edema. NEUROLOGICAL: Cranial nerves II through XII grossly intact. Normal speech, gait normal PSYCH: agitated and argumentative SKIN: Warm, dry, normal turgor, no rashes or lesions noted Laboratory Results - last 24 hr 12/30/18 12/30/18 06:00 06:00 WBC 11.2 H RBC 3.68 Hgb 10.5 L Hct 31.5 L MCV 85.6 MCH 28.4 MCHC 33.2 RDW 13.7 Plt Count 286 MPV 8.1 Absolute Neuts (auto) 8.2 H Neutrophils % 73.3 Lymphocytes % 19.0 Monocytes % 5.8 Eosinophils % 1.7 D Basophils % 0.2 Nucleated RBC % 0 Sodium 138 Potassium 3.6 Chloride 107 Carbon Dioxide 23 Anion Gap 7 L BUN 10 Creatinine 0.6 Creat Clearance w eGFR 115.85 Random Glucose 80 Calcium 8.4 L Magnesium 2.3 Total Bilirubin 0.4 AST 45 H ALT 27 Alkaline Phosphatase 42 L Total Protein 6.5 Albumin 3.2 L Active Medications Generic Name Dose Route Start Last Admin Trade Name Joanne PRN Reason Stop Dose Admin Lorazepam 2 mg 12/29/18 00:01 12/29/18 20:39 Ativan Injection - IVPUSH 2 mg Q8H PRN Administration AGITATION Potassium Chloride 40 meq 12/30/18 07:57 K-Dur - PO 12/30/18 07:58 ONCE ONE ASSESSMENT/PLAN: 33 yo F w/ h/o depression and anxiety who presents with unresponsiveness after potential suicide attempt. Pt is currently awake, alert and oriented. Her QTc has stabilized and she is deemed medically stable for transfer to inpatient psych facility. Encourage Oral intake d/c IVF EKG daily Vitals Q4, OOB to chair continue 1:1 observation psych following: recs appreciated. Discuss with terminal worker about transfer to inpt psych facility daily labs, replete electrolytes as needed Problem List - Problems (1) Depression Code(s): F32.9 - MAJOR DEPRESSIVE DISORDER, SINGLE EPISODE, UNSPECIFIED Qualifiers: Depression Type: major depressive disorder (2) Intentional SSRI (selective serotonin reuptake inhibitor) overdose Code(s): T43.222A - POISN BY SLCTV SEROTONIN REUPTAKE INHIBTR, SELF-HARM, INIT Qualifiers: Encounter type: initial encounter Qualified Code(s): T43.222A - Poisoning by selective serotonin reuptake inhibitors, intentional self-harm, initial encounter (3) Overdose of antipsychotic Code(s): T43.501A - POISONING BY UNSP ANTIPSYCHOT/NEUROLEPT, ACCIDENTAL, INIT Qualifiers: Encounter type: initial encounter (4) Anxiety Code(s): F41.9 - ANXIETY DISORDER, UNSPECIFIED Visit type - Emergency Visit Emergency Visit: Yes ED Registration Date: 12/28/18 Care time: The patient presented to the Emergency Department on the above date and was hospitalized for further evaluation of their emergent condition. - New Patient This patient is new to me today: Yes Date on this admission: 12/30/18 - Critical Care Critical Care patient: No - Discharge Referral Referred to [facility] Med P.C.: No
[2018-12-30] MEDS ORDERED: POTASSIUM CHLORIDE TABS 20 MEQ TABLET.ER (FP) PO ONE (08:45)
--- NOTE | 2018-12-30 10:25 | EKG ---
Test Reason : Blood Pressure : / mmHG Vent. Rate : 111 BPM Atrial Rate : 111 BPM P-R Int : 000 ms QRS Dur : 092 ms QT Int : 476 ms P-R-T Axes : 000 073 053 degrees QTc Int : 647 ms SINUS TACHYCARDIA WITH SHORT TX NONSPECIFIC T WAVE ABNORMALITY PROLONGED QT ABNORMAL ECG NO PREVIOUS ECGS AVAILABLE Confirmed by SEBASTIAN LOPEZ, MIK ([id number]) on 12/30/2018 10:24:40 AM Referred By: Confirmed By:MIK CORTES MD
--- NOTE | 2018-12-30 12:12 | PN ---
Progress Note (short form) - Note Progress Note: Psych follow up: Patient seen, continues to be on 1:1. MS: alert, sleepy but able to communicate. Patient reports that5 she only took 2 -3 SEroquel tabs. Patient had been in deep sleep since her overdose. She denies any active suicidal ideas or plans. She is unable or unwilling to engage in any meaningful conversation about what lead to this significant overdose. [facility] Patient unit about 3 yrs ago[address] [place] [address] Zarate at a local [facility] clinic.. I left a message for him to call me back. Plan: 1) Continue with 1:1. 2) tRANSFER TO iN PATIENT pSYCH FOT FURTHERT EVAL AND ytreatment of Major Depression. Amado estrella @ .
[2018-12-30] MEDS: LORATADINE 10 MG TABLET PO SCH (18:10)
[2018-12-30] MEDS: LORazepam 2 MG/ML SDV VIAL IVPUSH PRN (18:23)
[2018-12-30 21:25] LABS: PH,URINE 5.5 (5.0-8.0); URINE APPEARANCE Clear; URINE BILIRUBIN Negative (NEGATIVE); URINE COLOR Yellow; URINE GLUCOSE (UA) Negative (NEGATIVE); URINE KETONE Negative (NEGATIVE); URINE LEUK ESTERASE Negative (NEGATIVE); URINE NITRITE Negative (NEGATIVE); URINE PROTEIN Negative (NEGATIVE); URINE UROBILINOGEN 0.2 mg/dL (0.2-1.0)
[2018-12-30] MEDS ORDERED: PT OWN MED DRAWER 7, Y5N ONE (21:36)
[2018-12-30] MEDS: FLUTICASONE PROP 0.05% 16 GM NASAL SPRAY NS SCH (21:44)
[2018-12-31] MEDS ORDERED: CEFTRIAXONE 1 GM in DEXTROSE 5%-WATER - 50 ML IVPB ONE (00:17)
[2018-12-31] MEDS ORDERED: DOXYCYCLINE INJECTION 100 MG in DEXTROSE 5%-WATER 100 ML IVPB ONE (00:18)
[2018-12-31 03:11] LABS: HEPATITIS B CORE ANTIBODY,IGM Negative (Negative)
[2018-12-31] MEDS: LORazepam 2 MG/ML SDV VIAL IVPUSH PRN ×2 (05:16→14:08)
[2018-12-31 07:48] LABS: HEMATOCRIT 33.4 % (32.4-45.2); HEMOGLOBIN 11.4 GM/dL (10.7-15.3); MCH 28.9 pg (25.7-33.7); MEAN CELL VOLUME 85.1 fl (80-96); MEAN PLT VOLUME 8.7 fl (7.5-11.1); PLATELET COUNT 343 K/MM3 (134-434); RBC 3.93 M/mm3 (3.60-5.2); RDW 13.3 % (11.6-15.6); WHITE BLOOD COUNT 10.3 K/mm3 (4.0-10.0)
[2018-12-31 08:05] LABS: ALBUMIN 3.5 g/dl (3.4-5.0); ALK PHOS 53 U/L (45-117); ANION GAP 10 MMOL/L (8-16); BILIRUBIN,TOTAL 0.3 mg/dL (0.2-1); BLOOD UREA NITROGEN 12 mg/dL (7-18); CALCIUM 9.1 mg/dL (8.5-10.1); CHLORIDE 105 mmol/L (98-107); CO2 21 mmol/L (21-32); CREATININE 0.7 mg/dL (0.55-1.3); GLUCOSE,RANDOM 150 mg/dL (74-106); MAGNESIUM 2.2 mg/dL (1.8-2.4); POTASSIUM 3.5 mmol/L (3.5-5.1); SGOT/AST 43 U/L (15-37); SGPT/ALT 38 U/L (13-61); SODIUM 136 mmol/L (136-145); TOT PROT 7.2 g/dl (6.4-8.2)
[2018-12-31] MEDS: FLUTICASONE PROP 0.05% 16 GM NASAL SPRAY NS SCH ×2 (11:14→22:31)
[2018-12-31] MEDS: LORATADINE 10 MG TABLET PO SCH (11:14)
--- NOTE | 2018-12-31 12:38 | DS ---
Physical Examination Vital Signs: Vital Signs Temperature 98.9 F 12/31/18 06:00 Pulse Rate 128 H 12/31/18 06:00 Respiratory Rate 20 12/31/18 06:00 Blood Pressure 113/75 12/31/18 06:00 O2 Sat by Pulse Oximetry (%) 98 12/30/18 21:00 Findings/Remarks: CXR on 12/30 demonstrated RUL PNA, pt given a dose of Ceftriaxone and doxycycline IVSS. transitioned to augmentin 875mg BID x 7days. Constitutional: Yes: Well Nourished, No Distress Eyes: Yes: Conjunctiva Clear, PERRL HENT: Yes: Atraumatic, Normocephalic Neck: Yes: Supple, Trachea Midline Cardiovascular: Yes: Regular Rate and Rhythm Respiratory: Yes: Regular, CTA Bilaterally Gastrointestinal: Yes: Normal Bowel Sounds, Soft, Abdomen, Obese, Hemorrhoids ...Rectal Exam: Yes: Deferred Musculoskeletal: Yes: WNL Extremities: Yes: WNL Edema: No Peripheral Pulses WNL: Yes Peripheral Pulses: Left Radial: 2+, Right Radial: 2+, Left Doralis Pedis: 2+, Right Dorsalis Pedis: 2+ Integumentary: Yes: WNL Neurological: Yes: Alert, Oriented ...Motor Strength: WNL Psychiatric: Yes: Alert, Oriented, Agitated Labs: CBC, BMP 12/31/18 06:00 12/31/18 06:00 Discharge Summary Reason For Visit: INTENTIONAL OVERDOSE OF SSRI, PNA right upper lobe Current Active Problems Depression (Acute) Intentional SSRI (selective serotonin reuptake inhibitor) overdose (Acute) Overdose of antipsychotic (Acute) Procedures: Principal: CXR 12/31/2018. Impression: RUL infiltrate with mildly improved inspiratory effort. Reported by Dr Harrison Ortiz. Other Procedures: CXR 12/27/2018. A single AP view of the chest reveals a weak inspiration with some central crowding but no sign of a true infiltrate or failure. The bones and soft tissues are intact. When the patient is more stable in repeat study with deep inspiration is suggested for further evaluation. Harrison Howard MD 12/28/[address] 12/28/2018. Impression: No acute bleed or fracture.No CT evidence of acute infarct. Reported By: Vel Trent MD. CXR 12/30/2018. IMPRESSION: Right upper lobe consolidation. Reported By: Mehdi Victoria MD 12/30/18 6164 Hospital Course: Exerpted from Dr. Brown's Admission note: 33 yo F w/ h/o depression and anxiety who presents with unresponsiveness after potential suicide attempt. Pt is currently obtunded and history obtained through EMR/ED staff and mother. Around 7:30pm pt was found on the ground at home by her mother surrounded by 2 empty pill bottles (Quetiapine 200mg and Fluoxetine 20mg). Pt's mother reports the pill bottles were around 1/4 to 1/2 full a few days ago, however she is uncertain on any specific pill counts. Pt's mother did not notice any tonic-clonic movements, no urinary incontinence, no excessive diaphoresis, and the pt's mother noted she was still breathing. Her exact time of ingestion is unknown and it was noted earlier that the pt told her brother's significant other to "say goodbye to the kids" and "she could not do this anymore." Pt has been seen by Dr. Darrian Zarate for her depression and has had multiple changes in her depression/anxiety medications for poor control. Pt prior ED visits here were possible reaction to Haldol as well. Pt has not been in psychiatric hospital before. In ED poison control was notified who recommended EKG q6h and at least 12 hours of observation with cardiac monitoring with supportive care as needed. Hospital course: Patient was admitted to Medsurg unit, placed on 1:1 and IV NS to enhance renal excretion of the ingested drugs. EKGs Q6hrs with frequent neurochecks, seizure, precautions and fall precautions. Patient stabilized but has periods of agitation, demanding to leave the hospital , and pulling out her IV. She was treated with PRN ativan and reassurance. Condition: Guarded - Instructions Disposition: TRANSFER ACUTE CARE/OTHER HOSP - Home Medications Comprehensive Discharge Medication List: Ambulatory Orders Diazepam [Valium] 2 mg PO TID #7 tablet MDD 3 09/23/18 Fluoxetine HCl [Prozac -] 20 mg PO DAILY 12/28/18 Quetiapine Fumarate [Seroquel -] 200 mg PO HS 12/28/18 This patient is new to me today: No Emergency Visit: Yes ED Registration Date: 12/28/18 Care time: The patient presented to the Emergency Department on the above date and was hospitalized for further evaluation of their emergent condition. Critical Care patient: No - Discharge Referral Referred to [facility] Med P.C.: No
--- NOTE | 2018-12-31 14:42 | EKG ---
Test Reason : Blood Pressure : / mmHG Vent. Rate : 129 BPM Atrial Rate : 129 BPM P-R Int : 138 ms QRS Dur : 080 ms QT Int : 318 ms P-R-T Axes : 033 063 012 degrees QTc Int : 465 ms SINUS TACHYCARDIA NONSPECIFIC T WAVE ABNORMALITY ABNORMAL ECG WHEN COMPARED WITH ECG OF 30-DEC-2018 17:10, NO SIGNIFICANT CHANGE WAS FOUND Confirmed by Vignesh Lawrence ([id number]) on 12/31/2018 2:42:11 PM Referred By: Confirmed By:Vignesh Lawrence
[2018-12-31] MEDS ORDERED: AMOX TR/POT CLAV 875MG/125MG TABLETS (FP) PO SCH (15:15)
[2018-12-31] MEDS ORDERED: LORazepam 2 MG/ML SDV VIAL IVPUSH ONE (17:00)
[2018-12-31] MEDS ORDERED: HALOPERIDOL LACTATE 5 MG/ML IM ONE (17:00)
--- NOTE | 2018-12-31 18:35 | HOSP ---
Subjective - Review of Symptoms Events since last encounter: Spoke with covering psychiatrist at [facility] who requests patient be treated with IV abx for at least 2 more days before oral conversion and transfer to inpatient psych facility. augmentin d/akbar and pt continued on ceftriaxone 2gm q24hrs will trend WBC and fever curve ID consult obtained for abx approval. Cardiology consulted for persistent sinus tachycardia. Mother updated about change in events. Transfer most likey afternoon. Physical Examination Vital Signs: Vital Signs Temperature 98.5 F 12/31/18 13:43 Pulse Rate 111 H 12/31/18 13:43 Respiratory Rate 20 12/31/18 13:43 Blood Pressure 136/79 12/31/18 13:43 O2 Sat by Pulse Oximetry (%) 98 12/31/18 09:00 Labs: CBC, BMP 12/31/18 06:00 12/31/18 06:00
[2018-12-31] MEDS ORDERED: CEFTRIAXONE 2 GM in DEXTROSE 5%-WATER - 50 ML IVPB ONE (19:00)
[2018-12-31] MEDS ORDERED: DEXTROSE 5%-WATER - 50 ML IVPB ONE (19:02)
[2019-01-01] MEDS ORDERED: CEFTRIAXONE 2 GM in DEXTROSE 5%-WATER 100 ML IVPB ONE (07:50)
[2019-01-01 08:14] LABS: ALBUMIN 3.5 g/dl (3.4-5.0); ALK PHOS 50 U/L (45-117); ANION GAP 7 MMOL/L (8-16); BILIRUBIN,TOTAL 0.4 mg/dL (0.2-1); BLOOD UREA NITROGEN 11 mg/dL (7-18); CALCIUM 9.2 mg/dL (8.5-10.1); CHLORIDE 106 mmol/L (98-107); CO2 23 mmol/L (21-32); CREATININE 0.7 mg/dL (0.55-1.3); GLUCOSE,RANDOM 95 mg/dL (74-106); MAGNESIUM 2.3 mg/dL (1.8-2.4); POTASSIUM 4.3 mmol/L (3.5-5.1); SGOT/AST 31 U/L (15-37); SGPT/ALT 41 U/L (13-61); SODIUM 136 mmol/L (136-145); TOT PROT 7.5 g/dl (6.4-8.2)
[2019-01-01 09:39] LABS: BASO % 0.5 % (0-2.0); EOS % 4.1 % (0-4.5); LYMPH % 29.1 % (8-40); MCH 28.1 pg (25.7-33.7); MCHC 33.2 g/dl (32.0-36.0); MEAN CELL VOLUME 84.5 fl (80-96); MEAN PLT VOLUME 8.2 fl (7.5-11.1); MONO % 7.2 % (3.8-10.2); NEUT % 59.1 % (42.8-82.8); PLATELET COUNT 402 K/MM3 (134-434); RBC 4.26 M/mm3 (3.60-5.2); RDW 13.4 % (11.6-15.6); WHITE BLOOD COUNT 8.4 K/mm3 (4.0-10.0)
--- NOTE | 2019-01-01 09:47 | CON.CARD ---
Consult Consult Specialty:: Cardiology - History of Present Illness History of Present Illness: Patient is a 33 year old woman with a significant past medical history of depression and anxiety, brought by mother for evaluation after finding the patient unconscious next to two empty bottles of Quetiapine 200mg and Fluoxetine 20mg prescribed by her Psychiatrist Dr. Darrian Zarate. The patient reportedly told her brother's partner to "say goodbye to the kids because" she "couldn't do this no more" around 7:30 pm. Initial EKG in the ER showed sinus tachycardia with prolonged QTc. Poison control recommended q 6 hourly EKGs. - Alcohol/Substance Use Hx Alcohol Use: No - Smoking History Smoking history: Never smoked Have you smoked in the past 12 months: No - Social History Usual Living Arrangement: With Spouse Home Medications - Allergies Allergies/Adverse Reactions: Allergies Allergy/AdvReac Type Severity Reaction Status Date / Time No Known Allergies Allergy Verified 12/27/18 22:11 - Home Medications Home Medications: Ambulatory Orders Amox-Tr/K Cl [Augmentin 875-125mg Tablet -] 1 tab PO BID@0800,1730 tablet 12/31 Fluticasone Prop 0.05% Nasal [Flonase -] 1 spray NS BID spray 12/31/18 LORazepam [Ativan Injection -] 2 mg IVPUSH Q8H PRN vial MDD 6mg 12/31/18 Loratadine [Claritin -] 10 mg PO DAILY tablet 12/31/18 Review of Systems - Review of Systems Constitutional: reports: No Symptoms Eyes: reports: No Symptoms HENT: reports: No Symptoms Neck: reports: No Symptoms Cardiovascular: reports: No Symptoms Gastrointestinal: reports: No Symptoms Genitourinary: reports: No Symptoms Breasts: reports: No Symptoms Reported Musculoskeletal: reports: No Symptoms Integumentary: reports: No Symptoms Neurological: reports: No Symptoms Endocrine: reports: No Symptoms Hematology/Lymphatic: reports: No Symptoms Psychiatric: reports: No Symptoms Vital Signs: Vital Signs Temperature 98.2 F 01/01/19 05:38 Pulse Rate 110 H 01/01/19 05:38 Respiratory Rate 16 01/01/19 05:38 Blood Pressure 128/61 01/01/19 05:38 O2 Sat by Pulse Oximetry (%) 98 12/31/18 21:00 Constitutional: Yes: Well Nourished, No Distress, Calm Eyes: Yes: WNL, Conjunctiva Clear, EOM Intact HENT: Yes: WNL, Atraumatic, Normocephalic Neck: Yes: WNL, Supple, Trachea Midline Respiratory: Yes: WNL, Regular, CTA Bilaterally Gastrointestinal: Yes: WNL, Normal Bowel Sounds Renal/: Yes: WNL Cardiovascular: Yes: WNL, Regular Rate and Rhythm Musculoskeletal: Yes: WNL Extremities: Yes: WNL Integumentary: Yes: WNL Neurological: Yes: WNL, Alert, Oriented ...Motor Strength: WNL Psychiatric: Yes: WNL, Alert, Oriented - Other Data Labs, Other Data: CBC, BMP 01/01/19 06:30 Imaging - Results Chest X-ray: Image Reviewed (rul infiltrate) EKG: Image Reviewed (s tachy) Problem List - Problems (1) Depression Code(s): F32.9 - MAJOR DEPRESSIVE DISORDER, SINGLE EPISODE, UNSPECIFIED Qualifiers: Depression Type: major depressive disorder (2) Intentional SSRI (selective serotonin reuptake inhibitor) overdose Code(s): T43.222A - POISN BY SLCTV SEROTONIN REUPTAKE INHIBTR, SELF-HARM, INIT Qualifiers: Encounter type: initial encounter Qualified Code(s): T43.222A - Poisoning by selective serotonin reuptake inhibitors, intentional self-harm, initial encounter (3) Overdose of antipsychotic Code(s): T43.501A - POISONING BY UNSP ANTIPSYCHOT/NEUROLEPT, ACCIDENTAL, INIT Qualifiers: Encounter type: initial encounter (4) Anxiety Code(s): F41.9 - ANXIETY DISORDER, UNSPECIFIED (5) Dry skin dermatitis Code(s): L85.3 - XEROSIS CUTIS (6) TMJ (sprain of temporomandibular joint) Code(s): S03.40XA - SPRAIN OF JAW, UNSPECIFIED SIDE, INITIAL ENCOUNTER Qualifiers: Encounter type: initial encounter Qualified Code(s): S03.40XA - Sprain of jaw, unspecified side, initial encounter Assessment/Plan 33 year old woman with a significant past medical history of depression and anxiety, brought by mother for evaluation after finding the patient unconscious next to two empty bottles of Quetiapine 200mg and Fluoxetine 20mg prescribed by her Psychiatrist Dr. Darrian Zarate. The patient reportedly told her brother's partner to "say goodbye to the kids because" she "couldn't do this no more" around 7:30 pm. Initial EKG in the ER showed sinus tachycardia with prolonged QTc. Poison control recommended q 6 hourly EKGs. 1 ekg prolonged qt second nl qdt will repeat ekg and obtain echo cardiac biswas stable
[2019-01-01 10:00] LABS: ERYTHROCYTE SEDIMENTATION RATE 70 mm/hr (0-20)
[2019-01-01] MEDS ORDERED: DEXTROSE 5%-WATER 100 ML IVPB ONE (10:29)
--- NOTE | 2019-01-01 10:30 | PN ---
Progress Note (short form) - Note Progress Note: ID consult dictated imp/reccd
--- NOTE | 2019-01-01 10:36 | PN ---
Progress Note (short form) - Note Progress Note: ID consult dictated imp/reccd 33 yo female admitted on 12/27 with drug overdose - montored in the hospital ( prolonged QT) no fevers noted to have RUL infiltrate on cxray recent sinusitis treated with penicillin a few weeks ago pneumonia- improving continue ceftriaxone switch to augmentin when ready for d/c overdose Problem List - Problems (1) Pneumonia Code(s): J18.9 - PNEUMONIA, UNSPECIFIED ORGANISM (2) Overdose of antipsychotic Code(s): T43.501A - POISONING BY UNSP ANTIPSYCHOT/NEUROLEPT, ACCIDENTAL, INIT Qualifiers: Encounter type: initial encounter (3) Prolonged QT interval Code(s): R94.31 - ABNORMAL ELECTROCARDIOGRAM [ECG] [EKG]
--- NOTE | 2019-01-01 10:45 | PN ---
Physical Exam: SUBJECTIVE: Patient seen and examined at the bedside. having some urinary retention, will send out for a ua worried about her job, and wants to go home. denying suicide ideation at this time. states she only took 5 seroquel pills. denies chest pain, denies shortness of breath OBJECTIVE: for an echo today conveyor monitor: off for echo 0815, st 140s with pvcs Vital Signs Period Temp Pulse Resp BP Sys/Aleman Pulse Ox Last 24 Hr 97.9 F-98.5 F 106-111 16-20 127-136/61-89 98 GENERAL: The patient is awake, alert, and fully oriented, in no acute distress. HEAD: Normal with no signs of trauma. EYES: PERRL, extraocular movements intact, sclera anicteric, conjunctiva clear. No ptosis. ENT: Ears normal, nares patent, oropharynx clear without exudates, moist mucous membranes. NECK: Trachea midline, full range of motion, supple. LUNGS:lungs clear bilaterally HEART: Regular rate and rhythm, S1, S2 without murmur, rub or gallop. ABDOMEN: Soft, nontender, nondistended, normoactive bowel sounds EXTREMITIES: 2+ pulses, warm, well-perfused, no edema. NEUROLOGICAL: Normal speech, gait not observed. PSYCH: anxious SKIN: Warm, dry, normal turgor, no rashes or lesions noted Laboratory Results - last 24 hr 12/30/18 12/30/18 01/01/19 06:00 17:00 06:30 WBC 8.4 RBC 4.26 Hgb 12.0 Hct 36.0 MCV 84.5 MCH 28.1 MCHC 33.2 RDW 13.4 Plt Count 402 MPV 8.2 Absolute Neuts (auto) 5.0 Neutrophils % 59.1 Lymphocytes % 29.1 D Monocytes % 7.2 Eosinophils % 4.1 D Basophils % 0.5 Nucleated RBC % 0 ESR 70 H Sodium Potassium Chloride Carbon Dioxide Anion Gap BUN Creatinine Creat Clearance w eGFR Random Glucose Calcium Magnesium Total Bilirubin AST ALT Alkaline Phosphatase Total Protein Albumin TSH Free T4 Hepatitis Be Antibody Negative HCV Quantitation Hcv not detected HCV RNA log copies/mL TNP HIV Genotype Non reactive 01/01/19 06:30 WBC RBC Hgb Hct MCV MCH MCHC RDW Plt Count MPV Absolute Neuts (auto) Neutrophils % Lymphocytes % Monocytes % Eosinophils % Basophils % Nucleated RBC % ESR Sodium 136 Potassium 4.3 Chloride 106 Carbon Dioxide 23 Anion Gap 7 L BUN 11 Creatinine 0.7 Creat Clearance w eGFR 96.97 Random Glucose 95 Calcium 9.2 Magnesium 2.3 Total Bilirubin 0.4 AST 31 ALT 41 Alkaline Phosphatase 50 Total Protein 7.5 Albumin 3.5 TSH 2.15 Free T4 1.17 Hepatitis Be Antibody HCV Quantitation HCV RNA log copies/mL HIV Genotype Active Medications Generic Name Dose Route Start Last Admin Trade Name Freq PRN Reason Stop Dose Admin Fluticasone Propionate 1 spray 12/30/18 22:00 12/31/18 22:31 Flonase - NS 1 spray BID LYNDON Administration Ceftriaxone Sodium 1 gm/ 50 mls @ 100 mls/hr 01/01/19 10:30 Dextrose IVPB DAILY L[facility] Protocol Loratadine 10 mg 12/30/18 17:00 12/31/18 11:14 Claritin - PO 10 mg DAILY L[facility]ON Administration Lorazepam 2 mg 12/29/18 00:01 12/31/18 14:08 Ativan Injection - IVPUSH 2 mg Q8H PRN Administration AGITATION ASSESSMENT/PLAN: Patient is a 33 year old female with a past medical history of depression and anxiety who presents with unresponsiveness after potential suicide attempt. Per history patient was found on the ground at home by her mother surrounded by 2 empty pill bottles (Quetiapine 200mg and Fluoxetine 20mg). In ED poison control was notified who recommended EKG q6h and at least 12 hours of observation with cardiac monitoring with supportive care as needed. Psyche: Suicide attempt. patient now denies any suicide attempt. Seen by [facility], Dr. Villagomez who states patient can be discharged home tomorrow under her mother's care. She no longer needs to go to [facility] per Dr. Villagomez. Started on Prozac 20 mg po od and Seroquel 25mg po hs to monitor response Keep on a 1:1 overnight Psyche follow up in a.m for further plans Pulm: Rule out RUL pneumonia On Ceftriaxone. Denies shortness of breath or cough pulmonary consulted and pending fen tolerating po monitor electrolytes prophy SCDs Visit type - Emergency Visit Emergency Visit: Yes ED Registration Date: 12/28/18 Care time: The patient presented to the Emergency Department on the above date and was hospitalized for further evaluation of their emergent condition. - New Patient This patient is new to me today: Yes Date on this admission: 01/01/19 - Critical Care Critical Care patient: No - Discharge Referral Referred to [facility] Med P.C.: No
[2019-01-01] MEDS ORDERED: cefTRIAXone SODIUM 1 GM VIAL ONE (11:05)
[2019-01-01] MEDS ORDERED: DEXTROSE 5%-WATER - 50 ML IVPB ONE (11:05)
[2019-01-01] MEDS: LORATADINE 10 MG TABLET PO SCH (11:08)
[2019-01-01] MEDS: FLUTICASONE PROP 0.05% 16 GM NASAL SPRAY NS SCH ×2 (11:08→21:55)
[2019-01-01] MEDS: CEFTRIAXONE 1 GM in DEXTROSE 5%-WATER - 50 ML IVPB SCH (11:09)
--- NOTE | 2019-01-01 11:46 | PN ---
Progress Note (short form) - Note Progress Note: Psych follow up: patient seen, [facility] who is actively involved in her cre. Ms; alert, oriented, good eye contact. Denies any suicidal idea or plans. patient is cooperative and willing to go back onh meds and follow up with [facility] in [place]. Cognition intact; Rec; Restart Prozac 20 mh po od and SEroquel 25mg po hs. @0 will discharge patient in care of Mother when Medically stable.
--- NOTE | 2019-01-01 12:34 | PN ---
Progress Note (short form) - Note Progress Note: PULMONARY CONSULTATION DICTATED 01/01/19 IMP RUL PNEUMONIA LIKELY ASPIRATION S/P DRUG OD SUICIDE ATTEMPT DEPRESSION S/P PROLONGED QT PLAN ABX PER ID INHALED BRONCHODILATORS PRN F/U CHEST X-RAY OUTPATIENT TO CONFIRM RESOLUTION OF INFILTRATE DR ROMAN Problem List - Problems (1) Pneumonia Code(s): J18.9 - PNEUMONIA, UNSPECIFIED ORGANISM (2) Depression Code(s): F32.9 - MAJOR DEPRESSIVE DISORDER, SINGLE EPISODE, UNSPECIFIED Qualifiers: Depression Type: major depressive disorder (3) Intentional SSRI (selective serotonin reuptake inhibitor) overdose Code(s): T43.222A - POISN BY [facility] SEROTONIN REUPTAKE INHIBTR, SELF-HARM, INIT Qualifiers: Encounter type: initial encounter Qualified Code(s): T43.222A - Poisoning by selective serotonin reuptake inhibitors, intentional self-harm, initial encounter (4) Overdose of antipsychotic Code(s): T43.501A - POISONING BY UNSP ANTIPSYCHOT/NEUROLEPT, ACCIDENTAL, INIT Qualifiers: Encounter type: initial encounter (5) Prolonged QT interval Code(s): R94.31 - ABNORMAL ELECTROCARDIOGRAM [ECG] [EKG]
--- NOTE | 2019-01-01 13:14 | ECHO ---
Name: MEG BRIDGES Exam:Adult Echocardiogram Study Date: 01/01/2019 10:48 AM Age: 33 yrs Reason For Study: EF Height: 62 in Weight: 167 lb BSA: 1.8 m2 Procedure A two-dimensional transthoracic echocardiogram with color flow and Doppler was performed. A two-dimen sional transthoracic echocardiogram with color flow and Doppler was performed in limited views only. The larry dy was non-diagnostic in quality. No definitive statements could be made about this echo due to extremely po or acoustic windows. Left Ventricle The left ventricular size, thickness and function are normal. The left ventricular ejection fraction is normal. The left ventricular wall motion is normal. Right Ventricle The right ventricle is not well visualized. Atria Normal left and right atrial size and function. Mitral Valve The mitral valve is not well visualized. Tricuspid Valve The tricuspid valve is not well visualized. Aortic Valve The aortic valve is normal in structure and function. No hemodynamically significant valvular aortic stenosis. No aortic regurgitation is present. Pulmonic Valve The pulmonic valve is not well visualized. Great Vessels The aortic root is normal size. Pericardium/Pleura There is no pericardial effusion. Interpretation Summary The left ventricular size, thickness and function are normal The left ventricular ejection fraction is normal. The left ventricular wall motion is normal. A two-dimensional transthoracic echocardiogram with color flow and Doppler was performed in [facility] iews only. The tricuspid valve is not well visualized. The mitral valve is not well visualized. The study was non-diagnostic in quality. No definitive statements could be made about this echo due t o extremely poor acoustic windows. MD Brenton King 01/01/2019 01:13 PM
--- NOTE | 2019-01-01 14:56 | CONS ---
DATE OF CONSULTATION: 01/01/2019 REFERRING PHYSICIAN: Tayler Lloyd NP HISTORY OF PRESENT ILLNESS: The patient is a 33-year-old female with past medical history of depression, anxiety, admitted to [facility] on December 28 status post potential suicide attempt. Patient apparently around 7:30 on date of admission, the patient was found on the ground at home by her mother, surrounded by 2 empty bottles of pills, quetiapine 200 mg and fluoxetine 20 mg. Apparently the bottles were around quarter to half full a few days prior to this episode. Apparently the patient was noted with no evidence of any seizures or incontinence at the time. She was breathing. The patient was brought to the emergency room. In the emergency room she was started on IV fluids. She was also noted to have prolonged QT and started on IV fluids as well as EKG q.6 hours. Hospitalization significant for she was evaluated by Cardiology, who felt that her QTc improved and she was cardiac stable. Of note is she had noted on followup chest x-ray on December 30 to have a new right upper lobe infiltrate. She had a mild cough and some mild chest congestion. She was started on antibiotic therapy. The patient has a history of smoking, quit at the age of 25. There is no history of occupational exposure to chemicals or fumes. She denies any COPD or asthma. There is no history of pneumonia. PAST MEDICAL HISTORY: Again includes depression. REVIEW OF SYSTEMS: Positive occasional cough. No fever, no chills, no chest pain, no palpitations. There is occasional mild congestion. No abdominal pain. PHYSICAL EXAMINATION: General: The patient is a well-developed, well-nourished female, awake, alert, in no acute distress. Vital Signs: She is afebrile. Blood pressure is 127/89. O2 saturation is 98% on room air. HEENT: Exam is normocephalic, atraumatic. Neck: Supple, without adenopathy. Heart: Regular, S1, S2. Chest: Clear. Abdomen: Soft. Bowel sounds are positive. Extremities: No cyanosis or edema. LABORATORY: WBC is 8.4, hemoglobin 12.0, hematocrit 36.0, with a platelet count of 402,000. Of note is ESR is 70. BUN is 11, creatinine 0.7. Toxicology screen: Acetaminophen less than 2, salicylates less than 1.7. Chest x-ray reveals a right upper lobe infiltrate. IMPRESSION: 1. Right upper lobe pneumonia, likely aspiration secondary to suicide attempt. 2. Status post drug overdose with suicide attempt. 3. Depression status post prolonged QT. PLAN: Continue antibiotic therapy as per Infectious Disease, inhaled bronchodilators p.r.n. Obtain followup chest x-ray as outpatient to confirm resolution of infiltrate. SAMINA ROMAN M.D. [id number]
--- NOTE | 2019-01-01 15:03 | EKG ---
Test Reason : Blood Pressure : / mmHG Vent. Rate : 112 BPM Atrial Rate : 112 BPM P-R Int : 130 ms QRS Dur : 082 ms QT Int : 312 ms P-R-T Axes : 017 069 016 degrees QTc Int : 425 ms SINUS TACHYCARDIA OTHERWISE NORMAL ECG WHEN COMPARED WITH ECG OF 31-DEC-2018 23:25, NO SIGNIFICANT CHANGE WAS FOUND Confirmed by KALA MERCADO MD ([id number]) on 01/01/2019 3:03:22 PM Referred By: Gloria CHAVEZ Confirmed By:KALA MERCADO MD
--- NOTE | 2019-01-01 18:25 | CONS ---
DATE OF CONSULTATION: DATE OF DICTATION: 01/01/2019 INFECTIOUS DISEASE CONSULTATION REQUESTING PHYSICIAN: Hospitalist Service CONSULTING PHYSICIAN: Nuris Momin M.D. HISTORY OF PRESENT ILLNESS: This is a 33-year-old woman who was admitted on the after she was found nonresponsive by her mother. She has her empty pill bottle for quetiapine fluoxetine at her bedside. She was brought to the hospital, and poison control was notified, and they followed her with EKG monitoring. She had a prolonged QT. After admission, she was noted to have a right upper lobe infiltrate and she was started on antibiotics. I am to see her for antibiotic recommendations. She is currently awake and alert. She has minimal cough. She has had no fevers since admission. PAST MEDICAL HISTORY: Notable for depression, and anxiety. SOCIAL HISTORY: She resides in the community. She has no known drug allergies. MEDICATION: List of home medications include Claritin, Ativan, flonase, and Seroquel and Prozac. REVIEW OF SYSTEMS: She is currently resting comfortably. She denies any sore throat. She denies any nausea, vomiting, diarrhea, dysuria. She feels fatigued. PHYSICAL EXAMINATION: GENERAL: She has had no fever. VITAL SIGNS: Temperature is 98.4, pulse 106, blood pressure 115/76, respiratory rate 16, saturating 98% on room air. HEENT: Normocephalic. Eyes are anicteric. NECK: Supple. LUNGS: Clear to auscultation. HEART: Regular rate and rhythm. ABDOMEN: Soft, nontender. EXTREMITIES: Without edema. LABORATORY: Her white count was 10.3, today is 8.4, hemoglobin 12, platelets of 402. Chemistries are normal. Urinalysis is negative. Blood cultures are negative. Legionella urinary antigen is negative. Chest x-ray shows a right upper lobe infiltrate that is mildly improved. IMPRESSION: 1. In summary, this is a 33-year-old woman admitted with drug overdose, right upper lobe pneumonia, possible aspiration, who has been afebrile and doing well. Would continue ceftriaxone for now and switch to Augmentin when ready for discharge. 2. Status post drug overdose, management per psychiatry. 3. Prolonged QT interval, this is resolved. NURIS MOMIN M.D. /[id number]
[2019-01-01] MEDS ORDERED: PT OWN MED DRAWER 7, Y5N ONE (21:11)
[2019-01-01] MEDS ORDERED: QUEtiapine FUMARATE 25 MG TABLET (FP) PO SCH (22:00)
[2019-01-02 03:11] LABS: HEP B CORE AB, IGM Negative (Negative); HEP B CORE AB, TOT Negative (Negative)
--- NOTE | 2019-01-02 08:28 | PN ---
Progress Note, Physician Chief Complaint: Pt OOB in chair; A&Ox3; mildly anxious; no chest pain, palpitations, or dyspnea. No leg swelling. History of Present Illness: 33 woman (parents from [place]), with pmh of depression and anxiety , "borderline DM", overweight, brought by mother in her care after she was found unconscious next to two empty bottles of Quetiapine 200mg and Fluoxetine 20mg prescribed by her Psychiatrist Dr. Darrian Zarate. Unknown time of ingestion but she told her brother's partner to "say goodbye to the kids because" she "couldn't do this no more" around 7:30pm Mother drove to the ambulance bay - Current Medication List Current Medications: Active Medications Fluoxetine HCl (Prozac -) 20 mg PO DAILY [facility] Fluticasone Propionate (Flonase -) 1 spray NS BID [facility] Last Admin: 01/01/19 21:55 Dose: 1 spray Ceftriaxone Sodium 1 gm/ (Dextrose) 50 mls @ 100 mls/hr IVPB DAILY [facility]; Protocol Last Admin: 01/01/19 11:09 Dose: 100 mls/hr Loratadine (Claritin -) 10 mg PO DAILY [facility] Last Admin: 01/01/19 11:08 Dose: 10 mg Quetiapine Fumarate (Seroquel -) 25 mg PO HS [facility] Last Admin: 01/01/19 21:55 Dose: 25 mg - Objective Vital Signs: Vital Signs Temperature 98.5 F 01/02/19 06:00 Pulse Rate 101 H 01/02/19 06:00 Respiratory Rate 18 01/02/19 06:00 Blood Pressure 134/68 01/02/19 06:00 O2 Sat by Pulse Oximetry (%) 98 01/01/19 21:00 Constitutional: Yes: Well Nourished, Anxious Eyes: Yes: WNL Labs: CBC, BMP 01/01/19 06:30 01/01/19 06:30 Problem List - Problems (1) Depression Code(s): F32.9 - MAJOR DEPRESSIVE DISORDER, SINGLE EPISODE, UNSPECIFIED Qualifiers: Depression Type: major depressive disorder (2) Intentional SSRI (selective serotonin reuptake inhibitor) overdose Code(s): T43.222A - [facility], SELF-HARM, INIT Qualifiers: Encounter type: initial encounter Qualified Code(s): T43.222A - Poisoning by selective serotonin reuptake inhibitors, intentional self-harm, initial encounter (3) Overdose of antipsychotic Code(s): T43.501A - POISONING BY UNSP ANTIPSYCHOT/NEUROLEPT, ACCIDENTAL, INIT Qualifiers: Encounter type: initial encounter (4) Anxiety Assessment/Plan: Pt drinks severall cups of coffee daily, and takes caffeine pills "to keep my energy up". The caffeine is a principal contributer to her inus tachycardia She will try to gradually reduced the caffeine pills first. Code(s): F41.9 - ANXIETY DISORDER, UNSPECIFIED (5) Prolonged QT interval Assessment/Plan: Marked improvement in interval since off antidepressant/antipsychotic. EKG now shows sinus tachycardia; otherwise, normal study. ECHO: normal LVEF; normal chamber sizes and wall motion. Pt denies hx chest apin, dyspnea. Walks [address] to work; takes stairs occasionally at work. Gained 60 lbs after starting psychiatric medications; has since become more cognizant of the need to reduce weight. Plans to eat more heart-healthy. Code(s): R94.31 - ABNORMAL ELECTROCARDIOGRAM [ECG] [EKG]
[2019-01-02 09:27] LABS: PH,URINE 5.5 (5.0-8.0); URINE APPEARANCE CLEAR; URINE BACTERIA 0.3 /hpf (NEGATIVE); URINE BILIRUBIN NEGATIVE (NEGATIVE); URINE CASTS 1 /hpf (0-8); URINE COLOR YELLOW; URINE GLUCOSE (UA) NEGATIVE (NEGATIVE); URINE KETONE NEGATIVE (NEGATIVE); URINE LEUK ESTERASE TRACE (NEGATIVE); URINE NITRITE NEGATIVE (NEGATIVE); URINE PROTEIN NEGATIVE (NEGATIVE); URINE RBC 1 /hpf (0-4); URINE UROBILINOGEN 0.2 mg/dL (0.2-1.0); URINE WBC 1 /hpf (0-5)
[2019-01-02] MEDS ORDERED: cefTRIAXone SODIUM 1 GM VIAL ONE (09:34)
[2019-01-02] MEDS ORDERED: DEXTROSE 5%-WATER - 50 ML IVPB ONE (09:34)
[2019-01-02] MEDS: LORATADINE 10 MG TABLET PO SCH (09:41)
[2019-01-02] MEDS: FLUTICASONE PROP 0.05% 16 GM NASAL SPRAY NS SCH (09:41)
[2019-01-02] MEDS: CEFTRIAXONE 1 GM in DEXTROSE 5%-WATER - 50 ML IVPB SCH (09:41)
[2019-01-02 09:49] VITALS: PULSE 116
[2019-01-02] MEDS ORDERED: FLUoxetine HCL 20 MG CAPSULE (FP) PO SCH (10:00)
[2019-01-02 10:31] LABS: BASO % 0.9 % (0-2.0); EOS % 2.3 % (0-4.5); HEMATOCRIT 36.3 % (32.4-45.2); HEMOGLOBIN 12.2 GM/dL (10.7-15.3); LYMPH % 21.3 % (8-40); MCH 28.4 pg (25.7-33.7); MCHC 33.7 g/dl (32.0-36.0); MEAN CELL VOLUME 84.5 fl (80-96); MONO % 4.4 % (3.8-10.2); NEUT % 71.1 % (42.8-82.8); PLATELET COUNT 447 K/MM3 (134-434); RDW 13.4 % (11.6-15.6); WHITE BLOOD COUNT 9.2 K/mm3 (4.0-10.0)
[2019-01-02 11:05] LABS: ALBUMIN 3.6 g/dl (3.4-5.0); ALK PHOS 56 U/L (45-117); ANION GAP 10 MMOL/L (8-16); BILIRUBIN,TOTAL 0.2 mg/dL (0.2-1); BLOOD UREA NITROGEN 13 mg/dL (7-18); CALCIUM 9.4 mg/dL (8.5-10.1); CHLORIDE 102 mmol/L (98-107); CHOLESTEROL 148 mg/dL (50-200); CO2 24 mmol/L (21-32); CREATININE 0.6 mg/dL (0.55-1.3); GLUCOSE,RANDOM 124 mg/dL (74-106); HDL CHOLESTEROL 34 mg/dL (40-60); POTASSIUM 4.5 mmol/L (3.5-5.1); SGOT/AST 34 U/L (15-37); SGPT/ALT 53 U/L (13-61); SODIUM 136 mmol/L (136-145); TOT PROT 7.9 g/dl (6.4-8.2); TRIGLYCERIDES 99 mg/dL (0-150)
--- NOTE | 2019-01-02 12:01 | PN ---
Progress Note (short form) - Note Progress Note: OOB to chair eating lunch. Reports some dry cough and epistaxis. Comfortable on RA. Intake & Output 12/30/18 12/31/18 01/01/19 01/02/19 23:59 23:59 23:59 23:59 Intake Total 344 445 9743 150 Output Total 0 1 Balance 234 397 2258 149 Last Vital Signs Temp Pulse Resp BP Pulse Ox 98.8 F 116 H 20 149/86 99 01/02/19 09:48 01/02/19 09:48 01/02/19 09:48 01/02/19 09:48 01/02/19 09:49 Active Medications Fluoxetine HCl (Prozac -) 20 mg PO DAILY [facility] Last Admin: 01/02/19 09:41 Dose: 20 mg Fluticasone Propionate (Flonase -) 1 spray NS BID [facility] Last Admin: 01/02/19 09:41 Dose: 1 spray Ceftriaxone Sodium 1 gm/ (Dextrose) 50 mls @ 100 mls/hr IVPB DAILY [facility]; Protocol Last Admin: 01/02/19 09:41 Dose: 100 mls/hr Loratadine (Claritin -) 10 mg PO DAILY [facility] Last Admin: 01/02/19 09:41 Dose: 10 mg Quetiapine Fumarate (Seroquel -) 25 mg PO HS [facility] Last Admin: 01/01/19 21:55 Dose: 25 mg GENERAL: The patient is awake, alert, and fully oriented, in no acute distress. HEAD: Normal with no signs of trauma. EYES:sclera anicteric, conjunctiva clear. No ptosis. ENT: moist mucous membranes. NECK: Trachea midline, full range of motion, supple. LUNGS: Few scattered rhonchi, no wheeze HEART: Regular rate and rhythm, S1, S2 without murmur, rub or gallop. ABDOMEN: Soft, nontender, nondistended, normoactive bowel sounds EXTREMITIES: 2+ pulses, warm, well-perfused, no edema. NEUROLOGICAL: Non-focal PSYCH: mildly anxious SKIN: Warm, dry, normal turgor, no rashes or lesions noted Laboratory Results - last 24 hr 12/30/18 01/02/19 01/02/19 17:00 07:50 09:55 WBC 9.2 RBC 4.30 Hgb 12.2 Hct 36.3 MCV 84.5 MCH 28.4 MCHC 33.7 RDW 13.4 Plt Count 447 H MPV 8.0 Absolute Neuts (auto) 6.6 Neutrophils % 71.1 D Lymphocytes % 21.3 D Monocytes % 4.4 Eosinophils % 2.3 Basophils % 0.9 Nucleated RBC % 0 Sodium Potassium Chloride Carbon Dioxide Anion Gap BUN Creatinine Creat Clearance w eGFR Random Glucose Hemoglobin A1c % Calcium Total Bilirubin AST ALT Alkaline Phosphatase Total Protein Albumin Triglycerides Cholesterol Total LDL Cholesterol HDL Cholesterol Urine Color Yellow Urine Appearance Clear Urine pH 5.5 Ur Specific [place] 1.008 L Urine Protein Negative Urine Glucose (UA) Negative Urine Ketones Negative Urine Blood Negative Urine Nitrite Negative Urine Bilirubin Negative Urine Urobilinogen 0.2 Ur Leukocyte Esterase Trace Urine WBC (Auto) 1 Urine RBC (Auto) 1 Urine Casts (Auto) 1 U Epithel Cells (Auto) 1.0 Urine Bacteria (Auto) 0.3 Hep Bs Antigen Negative Hep Bs Antibody Non reactive Hep B Core Total Ab Negative Hep B Core IgM Ab Negative Hepatitis Be Antibody Negative Hepatitis Be Antigen Negative 01/02/19 01/02/19 09:55 09:55 WBC RBC Hgb Hct MCV MCH MCHC RDW Plt Count MPV Absolute Neuts (auto) Neutrophils % Lymphocytes % Monocytes % Eosinophils % Basophils % Nucleated RBC % Sodium 136 Potassium 4.5 Chloride 102 Carbon Dioxide 24 Anion Gap 10 BUN 13 Creatinine 0.6 Creat Clearance w eGFR 115.85 Random Glucose 124 H Hemoglobin A1c % 5.4 Calcium 9.4 Total Bilirubin 0.2 AST 34 ALT 53 Alkaline Phosphatase 56 Total Protein 7.9 Albumin 3.6 Triglycerides 99 Cholesterol 148 Total LDL Cholesterol 102 H HDL Cholesterol 34 L Urine Color Urine Appearance Urine pH Ur Specific [place] Urine Protein Urine Glucose (UA) Urine Ketones Urine Blood Urine Nitrite Urine Bilirubin Urine Urobilinogen Ur Leukocyte Esterase Urine WBC (Auto) Urine RBC (Auto) Urine Casts (Auto) U Epithel Cells (Auto) Urine Bacteria (Auto) Hep Bs Antigen Hep Bs Antibody Hep B Core Total Ab Hep B Core IgM Ab Hepatitis Be Antibody Hepatitis Be Antigen Problem List - Problems (1) Pneumonia Code(s): J18.9 - PNEUMONIA, UNSPECIFIED ORGANISM (2) Depression Code(s): F32.9 - MAJOR DEPRESSIVE DISORDER, SINGLE EPISODE, UNSPECIFIED Qualifiers: Depression Type: major depressive disorder (3) Intentional SSRI (selective serotonin reuptake inhibitor) overdose Code(s): T43.222A - POISN BY [facility] SEROTONIN REUPTAKE INHIBTR, SELF-HARM, INIT Qualifiers: Encounter type: initial encounter Qualified Code(s): T43.222A - Poisoning by selective serotonin reuptake inhibitors, intentional self-harm, initial encounter (4) Overdose of antipsychotic Code(s): T43.501A - POISONING BY UNSP ANTIPSYCHOT/NEUROLEPT, ACCIDENTAL, INIT Qualifiers: Encounter type: initial encounter (5) Prolonged QT interval Code(s): R94.31 - ABNORMAL ELECTROCARDIOGRAM [ECG] [EKG] IMP RUL PNEUMONIA LIKELY ASPIRATION S/P DRUG OD SUICIDE ATTEMPT DEPRESSION S/P PROLONGED QT PLAN ABX PER ID INHALED BRONCHODILATORS PRN OOB TO CHAIR FAVIO MCNEAL
--- NOTE | 2019-01-02 12:17 | DS ---
Physical Exam: SUBJECTIVE: Patient seen and examined at the bedside. Tells me that she feels better. Denies any thoughts or plans to harm or kill herself. Wants to go to return to work and plan our her life. She has been cleared by psych yesterday for discharge home, she was kept overnight to monitor her response to prozac. Will send her home under her mother's care per psyche. Patient agrees to follow up with psych within 1-2 days and get her medications filled with him. will give her a few doses to hold her for a few days. OBJECTIVE: discharge home. patient in good spirits, denies plan or attempt to kill her self Vital Signs Period Temp Pulse Resp BP Sys/Aleman Pulse Ox Last 24 Hr 98.0 F-98.8 F 97-119 16-20 115-149/65-89 98-99 GENERAL: The patient is awake, alert, and fully oriented, in no acute distress. HEAD: Normal with no signs of trauma. EYES: PERRL, extraocular movements intact, sclera anicteric, conjunctiva clear. No ptosis. ENT: Ears normal, nares patent, oropharynx clear without exudates, moist mucous membranes. NECK: Trachea midline, full range of motion, supple. LUNGS:lungs clear bilaterally, tolerating room air, no cough, no fever HEART: sinus tachycardia low 110s, denies any palpitations ABDOMEN: Soft, nontender, nondistended, normoactive bowel sounds EXTREMITIES: 2+ pulses, warm, well-perfused, no edema. NEUROLOGICAL: Normal speech, gait not observed. PSYCH: calm, and cooperative SKIN: Warm, dry, normal turgor, no rashes or lesions noted LABS Laboratory Results - last 24 hr 12/30/18 01/02/19 01/02/19 17:00 07:50 09:55 WBC 9.2 RBC 4.30 Hgb 12.2 Hct 36.3 MCV 84.5 MCH 28.4 MCHC 33.7 RDW 13.4 Plt Count 447 H MPV 8.0 Absolute Neuts (auto) 6.6 Neutrophils % 71.1 D Lymphocytes % 21.3 D Monocytes % 4.4 Eosinophils % 2.3 Basophils % 0.9 Nucleated RBC % 0 Sodium Potassium Chloride Carbon Dioxide Anion Gap BUN Creatinine Creat Clearance w eGFR Random Glucose Hemoglobin A1c % Calcium Total Bilirubin AST ALT Alkaline Phosphatase Total Protein Albumin Triglycerides Cholesterol Total LDL Cholesterol HDL Cholesterol Urine Color Yellow Urine Appearance Clear Urine pH 5.5 Ur Specific [place]add[place] 1.008 L Urine Protein Negative Urine Glucose (UA) Negative Urine Ketones Negative Urine Blood Negative Urine Nitrite Negative Urine Bilirubin Negative Urine Urobilinogen 0.2 Ur Leukocyte Esterase Trace Urine WBC (Auto) 1 Urine RBC (Auto) 1 Urine Casts (Auto) 1 U Epithel Cells (Auto) 1.0 Urine Bacteria (Auto) 0.3 Hep Bs Antigen Negative Hep Bs Antibody Non reactive Hep B Core Total Ab Negative Hep B Core IgM Ab Negative Hepatitis Be Antibody Negative Hepatitis Be Antigen Negative 01/02/19 01/02/19 09:55 09:55 WBC RBC Hgb Hct MCV MCH MCHC RDW Plt Count MPV Absolute Neuts (auto) Neutrophils % Lymphocytes % Monocytes % Eosinophils % Basophils % Nucleated RBC % Sodium 136 Potassium 4.5 Chloride 102 Carbon Dioxide 24 Anion Gap 10 BUN 13 Creatinine 0.6 Creat Clearance w eGFR 115.85 Random Glucose 124 H Hemoglobin A1c % 5.4 Calcium 9.4 Total Bilirubin 0.2 AST 34 ALT 53 Alkaline Phosphatase 56 Total Protein 7.9 Albumin 3.6 Triglycerides 99 Cholesterol 148 Total LDL Cholesterol 102 H HDL Cholesterol 34 L Urine Color Urine Appearance Urine pH Ur Specific Braddock Urine Protein Urine Glucose (UA) Urine Ketones Urine Blood Urine Nitrite Urine Bilirubin Urine Urobilinogen Ur Leukocyte Esterase Urine WBC (Auto) Urine RBC (Auto) Urine Casts (Auto) U Epithel Cells (Auto) Urine Bacteria (Auto) Hep Bs Antigen Hep Bs Antibody Hep B Core Total Ab Hep B Core IgM Ab Hepatitis Be Antibody Hepatitis Be Antigen HOSPITAL COURSE: Patient is a 33 year old female with a history of anxiety and depression under the care of a psychiatrist. She presented to the ED on 12/28/2018 with unresponsiveness after potential suicide attempt. Pt is currently obtunded and history obtained through EMR/ED staff and mother. Per admssion noted, patient was found on the ground at home by her mother surrounded by 2 empty pill bottles (Quetiapine 200mg and Fluoxetine 20mg). Pt's mother reported the pill bottles were around 1/4 to 1/2 full a few days ago, however she is uncertain on any specific pill counts. Pt's mother did not notice any tonic-clonic movements , no urinary incontinence, no excessive diaphoresis, and the pt's mother noted she was still breathing. Her exact time of ingestion was unknown and it was noted earlier that the pt told her brother's significant other to "say goodbye to the kids" and "she could not do this anymore." Pt has been seen by Dr. Darrian Zarate for her depression and has had multiple changes in her depression/anxiety medications for poor control. Pt prior ED visits here were possible reaction to Haldol as well. Pt has not been in psychiatric hospital before. In ED poison control was notified who recommended EKG q6h and at least 12 hours of observation with cardiac monitoring with supportive care. Hospital course by problem list: Psyche: Suicide attempt/unresponsive on admission. Patient's mentation, mood and overall affect is back to her baseline. She denies any further thoughts of suicide or harming herself. On admission, patient was seen by psych and placed on a 1:1 for suicide attempt. She was initially accepted to [facility] for in patient psyche. Per psyche, she is now cleared for discharge home under the care of her mother as patient is no longer expressing suicide ideation nor has a plan to harm herself. Started on Prozac 20 mg PO daily and Seroquel 25mg PO at HS with good effect. She was kept on a 1:1 overnight and will be discharged to her mother's care today. She has an outpatient psychiatrist who she will follow up with in 1-2 days. Psyche follow up in a.m for further plans. Pulm: Rule out RUL pneumonia On Ceftriaxone 1 gram and has received 2 doses. Denies shortness of breath or cough Will send home on Augmentin 875 bid for 5 more days. She has a PCP and will follow up with chest xray to ensure resolution of the pneumonia once the antibiotics are completed. Date of Admission:12/28/18 Date of Discharge: 01/02/19 Minutes to complete discharge: 60 Discharge Summary Reason For Visit: INTENTIONAL OVERDOSE OF SSRI, PNA right upper lobe Current Active Problems Depression (Acute) Intentional SSRI (selective serotonin reuptake inhibitor) overdose (Acute) Overdose of antipsychotic (Acute) Pneumonia (Acute) Prolonged QT interval (Acute) Condition: Guarded - Instructions Diet, Activity, Other Instructions: Ms Geovanny Harvey were admitted for a potential suicide attempt and were seen by Dr. Villagomez, psychiatrist. We will be discharging you home under the care of your mother. Please follow up with your psychiatrist as discussed with . I have called in 5 days worth of medications for you but you will need to see your psychiatrist for continuation of these medications. You were found to have a possible right lung pneumonia on admission. We have treated you with IV antibiotics and will be sending you home on Augmentin for 5 more days. Please follow up with your PCP for a repeat chest xray to assure that your pneumonia has cleared up. Please see your primary care doctor. If you dont have one, we have send you some referrals on your discharge instructions. thank you for allowing us to care for you. Referrals: Peggy aGona MD [[facility]vision[facility] Medical Staff] - 1 Week Disposition: HOME - Home Medications Comprehensive Discharge Medication List: Ambulatory Orders Amox-Tr/K Cl [Augmentin 875-125mg Tablet -] 1 tab PO BID@0800,1730 tablet 12/31 Fluticasone Prop 0.05% Nasal [Flonase -] 1 spray NS BID spray 12/31/18 Loratadine [Claritin -] 10 mg PO DAILY tablet 12/31/18 Amoxicillin/Potassium Clav [Augmentin 875-125 Tablet] 1 each PO BID #10 tablet 01/02/19 Fluoxetine HCl [Prozac -] 20 mg PO DAILY #5 capsule 01/02/19 Quetiapine Fumarate [Seroquel -] 25 mg PO HS #5 tablet 01/02/19 This patient is new to me today: Yes Date on this admission: 01/02/19 Emergency Visit: Yes ED Registration Date: 12/28/18 Care time: The patient presented to the Emergency Department on the above date and was hospitalized for further evaluation of their emergent condition. Critical Care patient: No - Discharge Referral Referred to [facility] Med P.C.: No
[2019-01-02 15:24] VITALS: BP 133/91; TEMP 97.1
== END 2019-01-02 16:23 | disposition home or self-care (01) | DRG 812 ==
LOC: JER 22:00 → JERBED 12-28 00:13 → OBSVTOIN 12-28 00:41 → J4S 12-29 13:46
PROVIDERS: ADMIT Internal Medicine; ATTEND Nurse Practitioner Family
DX: T43.222A Poisoning by selective serotonin reuptake inhibitors, intentional self-harm, initial encounter (principal); R40.0 Somnolence; F41.8 Other specified anxiety disorders; T43.501A Poisoning by unspecified antipsychotics and neuroleptics, accidental (unintentional), initial encounter; E66.3 Overweight; R94.31 Abnormal electrocardiogram [ECG] [EKG]; E87.6 Hypokalemia; R45.851 Suicidal ideations; J69.0 Pneumonitis due to inhalation of food and vomit; R00.0 Tachycardia, unspecified
CPT/HCPCS: 36415; 70450-TC; 71045-TC-FY; 80048; 80053; 80061; 80307; 81003; 82308; 82533; 83036; 83721; 83735; 84439; 84443; 84703; 85025; 85027; 85651; 86704; 86705; 86706; 86707; 87040; 87086; 87389; 87522; 87899; 93005; 93010; 93306-TC; 99285-25; G0378; J7030

== ENCOUNTER 2024-02-11 13:33 | Emergency (ER) | payer OTHER ==
[2024-02-11 13:50] VITALS: BP 111/72; PULSE 104; RESP 18; TEMP 98; BMI 23.3
== END 2024-02-11 17:12 | disposition home or self-care (01) ==
LOC: JER 13:33
DX: R21 Rash and other nonspecific skin eruption (principal); L29.9 Pruritus, unspecified
CPT/HCPCS: 99283-25